=== PATIENT | male | born 1940 | race Caucasian/White ===

== ENCOUNTER 2019-05-27 11:27 | Inpatient (IN) | payer MEDICARE ==
[2019-05-27] MEDS ORDERED: Dextrose 5% in Water 1,000 ML IV PRN (14:53)
[2019-05-27] MEDS ORDERED: Dextrose 50% Abboject 50 ML SYRINGE SLOW IVP PRN (14:53)
[2019-05-27] MEDS: HumaLOG 300 UNITS/3 ML VIAL SC PRN ×2 (17:31→22:35)
[2019-05-27] MEDS: Atorvastatin Calcium 40 MG TAB PO SCH (22:33)
[2019-05-27] MEDS: Rivaroxaban 10 MG TAB PO SCH ×3 (22:33→22:44)
[2019-05-27] MEDS: Aspirin Chewable 81 MG TAB PO SCH (22:34)
[2019-05-27] MEDS: Multivitamin W/ Minerals 1 TAB PO SCH (22:35)
[2019-05-27] MEDS: Gabapentin 300 MG CAP PO SCH (22:35)
[2019-05-27] MEDS: BIOTIN PO SCH (22:47)
[2019-05-27] MEDS: GLUCOSAMINE PO SCH (22:48)
[2019-05-27] MEDS: MAGNESIUM 250 MG PO SCH (22:48)
--- NOTE | 2019-05-28 01:41 | HP ---
PRIMARY CARE PHYSICIAN: From [place]. REASON FOR ADMISSION: Skilled rehab in [place] after sustaining a fall/fracture. HISTORY OF THE PRESENT ILLNESS AND HOSPITAL COURSE: Mr. Drake is a 79-year- old male with a past medical history of coronary artery disease, status post CABG; paroxysmal atrial fibrillation, on long-term use of Xarelto for anticoagulation; history of cardiomyopathy and systolic dysfunction with EF of 40% to 45%; CKD stage 3; aortic valve replacement with porcine valve for aortic stenosis and previous history of CVA; insulin-dependent type 2 diabetes, for which he is on insulin pump; diabetic retinopathy, nephropathy, and neuropathy. The patient lives at an assisted living in [place]. Apparently, he was reported to have had witnessed seizure at the assisted living facility. Per records, he denies history of seizure in the past. Per report that we gathered, the patient fell landing on his right hip after his seizure episode and he lost his consciousness. The patient was subsequently transferred to emergency room for further evaluation. While in the emergency room, he was reported to have a minute of witnessed seizure by a nurse. The patient was given 500 IV Keppra at that time. He had CT of the head done, which shows old lacunar infarcts and volume loss, but no acute findings. CT of the pelvis without contrast showed acute comminuted fracture of the right inferior pubic ramus, acute fracture of medial and posterior right acetabulum, the right obturator externus and internus intramuscular hematoma. CT of the cervical spine showed no fracture. There was a homogeneously hyperdense 4 cm mass versus hematoma in the subcutaneous tissue of posterior neck noted. His EKG was reported controlled rate, atrial fibrillation. Orthopedic surgeon, Dr. Butler, was consulted at that time. The patient was conservatively managed for his fracture and for orthopedic recommendation. With regards to his seizure, it was deemed secondary to hypoglycemia. His Insulin pump was discontinued and patient was started on long acting basal insulin. He is currently on 10 units qd. Patient was then transferred to [facility] for further rehab prior to going back home to assisted living. PAST MEDICAL HISTORY: Legally blind; coronary artery disease, status post CABG; paroxysmal atrial fibrillation, long-term use of Xarelto for anticoagulation. His retail service technician is Dr. Fernandez. History of cardiomyopathy and systolic dysfunction with EF of around 40% to 45%; CKD stage 3; aortic valve replacement with porcine valve for aortic stenosis; previous history of stroke; insulin-dependent type 2 diabetes, for which he is on insulin pump, diabetic retinopathy, nephropathy, and neuropathy; depression; anxiety. PAST SURGICAL HISTORY: Cholecystectomy, coronary artery bypass graft, cardiac valve replacement by aortic bioprosthetic valve in 2007, bilateral cataract removal, previous cardioversion. CURRENT MEDICATIONS: 1. Amlodipine 5 mg p.o. daily. 2. Aspirin 81 mg p.o. daily. 3. Atorvastatin 40 mg p.o. at bedtime. 4. Ferrous sulfate 325 mg p.o. daily. 5. Furosemide 40 mg p.o. daily. 6. Gabapentin 300 mg at 12 noon and 2100. 7. Lantus 10 units subcu daily. 8. Theragran-M one tablet p.o. at bedtime. 9. Pantoprazole 40 mg p.o. daily. 10. Polyethylene glycol 17 g p.o. daily. 11. Xarelto 15 mg p.o. at bedtime. 12. Sertraline 50 mg p.o. daily. 13. Carvedilol 3.125 mg p.o. b.i.d. 14. Glucosamine 500 mg p.o. at bedtime. 15. Magnesium 250 mg p.o. at bedtime. 16. Biotin 2500 mg p.o. at bedtime. SOCIAL HISTORY: Denies alcohol or tobacco use. He is retired. He lives in assisted living in [place]. He is a full code. ALLERGIES: TO SULFA ANTIBIOTIC, PREDNISONE. FAMILY HISTORY: Mother at the age of 74 with [place] and father at the age of 88 with [place]. REVIEW OF SYSTEMS: GENERAL: Denies fever, chills. Reports fatigue and general weakness. No loss of appetite. HEENT: Reports blind in one eye and blurred vision in another eye. No eye discharge. No acute hearing changes. Reports intermittent picking of nose that leads to nose bleeding. RESPIRATORY: No cough, sputum production, or bloody sputum. No pain with breathing. CARDIAC: No chest pain. No dyspnea on exertion. No paroxysmal nocturnal dyspnea. GASTROINTESTINAL: No nausea, vomiting, abdominal pain, rectal bleeding, hematemesis, hematochezia, melena. GENITOURINARY: No dysuria, frequency, urgency, gross hematuria, incontinence. MUSCULOSKELETAL: Reports joint pain/fall/fracture as per HPI. NEUROLOGIC: Denies focal numbness, focal weakness. Reports unsteadiness of gait and seizure per HPI. SKIN: Reports some bruises. No rashes. Nonhealing ulcer. HEMATOLOGY: On long-term use of anticoagulant. Reports easy bruising and occasional nose bleeding. PHYSICAL EXAMINATION: VITAL SIGNS: Blood pressure 133/60, temp 97.3, pulse 68, [id number], O2 saturations 96% on room air. Weight 171 pounds and height 5 feet. GENERAL: The patient is awake, alert, oriented. he is generally weak looking, frail elderly. He is comfortable on exam,no signs of acute respiratory distress. He is able to answer simple questions with appropriateness. No family is available at bedside during the assessment. HEENT: Normocephalic, atraumatic. PERRL. Intact EOM. Anicteric sclerae. Clear naris. Oral mucosa is moist. No lesions. NECK: Supple. Full range of motion. No LAD. CHEST: Normal excursion. Clear to auscultation bilaterally. CARDIAC: Rate controlled. Normal S1 and S2. ABDOMEN: Flat, soft. Normoactive bowel sounds. Nondistended, nontender. No rebound or guarding. Negative CVA tenderness bilaterally. EXTREMITIES: No edema. No cyanosis. NEUROLOGIC: Nonfocal. DTRs 2+. Gait unsteady. He is unable to get up on his own, max assist at this time. MUSCULOSKELETAL: No joint effusion. No erythema. No contusion noted on both hips. SKIN: good skin turgor. A dry brownish black looking wound noted on the left medial sole, about1-1.2 cm in size. No drainage, no exudates, no erythema, no signs of infection. See picture for details. PSYCHIATRIC: Calm, cooperative, interactive. LABORATORY DATA: Recent labs in the hospital, May 23, 2019; WBC 6.5, hemoglobin 9.5, hematocrit 30.3. Sodium 141, potassium 4.4, glucose 161, BUN 61, creatinine 1.9, GFR 37, calcium 8.8. ASSESSMENT: 1. Nondisplaced pelvic fracture secondary to fall, for conservative management only. 2. Severe debility secondary to general weakness. 3. Unsteady gait. 4. Status post fall at home. 5. Seizure deemed to be secondary to hypoglycemia. No further anticonvulsants were recommended 6. Chronic atrial fibrillation, rate controlled on long-term use of Xarelto for anticoagulation. 7. Congestive heart failure with ejection fraction of 40% to 45%. 8. Diabetes type 2, insulin-dependent, on insulin pump, previously on insulin pump. 9. Hypertension. 10. Diabetic retinopathy and neuropathy. 11. Anxiety. 12. Dyslipidemia. 13. Chronic kidney disease stage 3. 14. History of hypoglycemia. 15. Chronic wound of the left foot. PLAN: 1. The patient was admitted to [facility] for skilled rehab. PT/ OT to be consulted. 2. We will continue current medications per list. To continue low dose long acting basal insulin with extreme caution, secondary to history of hypoglycemia that was deemed causing the reported seizure activity from the hospital 3. Accu-Cheks with NovoLog q.a.c. and at bedtime. Hypoglycemic precautions. 4. Fall precautions. 5. Cardiac diet. 6. We will continue monitoring the patient and manage and supportive medical management for barriers that will interfere with rehab. 7. Wound care order will be coordinated either from the hospital versus [facility] staff in am. For the meantime, will keep the wound dry and clean with routine wound dressing per protocol. 8. DVT prophylaxis is not ordered as the patient is already on long-term use of Xarelto and aspirin. 8. Further recommendations depending on the hospital course. 9. Code status: FULL CODE. This was confirmed with son, Arias Camp, on the phone. ESTIMATED LENGTH OF STAY: 2-3 weeks. Job ID: [id number] MTDD
[2019-05-28 06:08] LABS: Hemoglobin 9.5 g/dL (14.0-18.0); Mean Corpuscular HGB CONC 31.9 g/dL (32.0-36.0); Mean Corpuscular Hemoglobin 29.2 pg (27.0-31.0); Mean Corpuscular Volume 91.6 fL (78.0-98.0); Mean Platelet Volume 6.9 fL (7.4-10.4); Platelet Count 150 thou/uL (130-400); RBC Distribution Width 15.2 % (11.5-14.5); Red Blood Cell (RBC) Count 3.25 mill/uL (4.70-6.10)
[2019-05-28 06:09] LABS: #Basophils 0.1 thou/uL (0.0-0.2); #Eosinphils 0.2 thou/uL (0.0-0.7); #Lymphocytes 1.3 thou/uL (1.20-3.40); #Monocytes 0.7 thou/uL (0.11-0.59); #Neutrophils 3.8 thou/uL (1.40-6.50); %Eosinophils 3.2 % (0.0-10.0); %Lymphocytes 21.1 % (21.0-51.0); %Monocytes 11.3 % (0.0-10.0); %Neutrophils 63.4 % (42.0-75.0)
[2019-05-28 07:06] LABS: Anion Gap 14 mmol/L (10-20); BUN (Urea Nitrogen) 47 mg/dL (8.4-25.7); Calc. Creatinine Clearance 39 mL/min (70-130); Calcium 9.2 mg/dL (7.8-10.44); Carbon Dioxide 30 mmol/L (23-31); Chloride 102 mmol/L (98-107); Estimated GFR-MDRD 39; Glucose 184 mg/dL (83-110); Potassium 4.8 mmol/L (3.5-5.1); Sodium 141 mmol/L (136-145)
[2019-05-28] MEDS: Amlodipine 5 MG TAB PO SCH (08:23)
[2019-05-28] MEDS: Ferrous Sulfate 325 MG TAB PO SCH (08:23)
[2019-05-28] MEDS: HYDROcodone/Acetaminophen 5/325 mg Tablet PO PRN (08:24)
[2019-05-28] MEDS: Furosemide 40 MG TAB PO SCH (08:24)
[2019-05-28] MEDS: HumaLOG 300 UNITS/3 ML VIAL SC PRN ×4 (08:26→22:09)
[2019-05-28] MEDS: Lantus 1000 UNITS/10 ML VIAL SC SCH (08:34)
[2019-05-28] MEDS: Gabapentin 300 MG CAP PO SCH ×2 (11:51→21:21)
[2019-05-28] MEDS: Multivitamin W/ Minerals 1 TAB PO SCH (21:21)
[2019-05-28] MEDS: Aspirin Chewable 81 MG TAB PO SCH (21:21)
[2019-05-28] MEDS: Atorvastatin Calcium 40 MG TAB PO SCH (21:21)
[2019-05-28] MEDS: BIOTIN PO SCH (21:23)
[2019-05-28] MEDS: Rivaroxaban 10 MG TAB PO SCH (21:24)
[2019-05-28] MEDS: MAGNESIUM 250 MG PO SCH (21:24)
[2019-05-28] MEDS: GLUCOSAMINE PO SCH (21:24)
[2019-05-29] MEDS: HYDROcodone/Acetaminophen 5/325 mg Tablet PO PRN (08:48)
[2019-05-29] MEDS: Polyethylene Glycol 3350 17 GM Packet PO PRN (08:49)
[2019-05-29] MEDS: Ferrous Sulfate 325 MG TAB PO SCH (08:50)
[2019-05-29] MEDS: Furosemide 40 MG TAB PO SCH (08:50)
[2019-05-29] MEDS: Amlodipine 5 MG TAB PO SCH (08:51)
[2019-05-29] MEDS: Lantus 1000 UNITS/10 ML VIAL SC SCH (08:53)
[2019-05-29] MEDS: HumaLOG 300 UNITS/3 ML VIAL SC PRN ×4 (08:58→21:06)
[2019-05-29] MEDS: Gabapentin 300 MG CAP PO SCH ×2 (12:15→20:39)
[2019-05-29] MEDS: Atorvastatin Calcium 40 MG TAB PO SCH (20:38)
[2019-05-29] MEDS: Multivitamin W/ Minerals 1 TAB PO SCH (20:38)
[2019-05-29] MEDS: Rivaroxaban 10 MG TAB PO SCH (20:38)
[2019-05-29] MEDS: Aspirin Chewable 81 MG TAB PO SCH (20:39)
[2019-05-29] MEDS: MAGNESIUM 250 MG PO SCH (20:40)
[2019-05-29] MEDS: BIOTIN PO SCH (20:40)
[2019-05-29] MEDS: GLUCOSAMINE PO SCH (20:40)
[2019-05-30] MEDS: Ferrous Sulfate 325 MG TAB PO SCH (08:26)
[2019-05-30] MEDS: Furosemide 40 MG TAB PO SCH (08:26)
[2019-05-30] MEDS: Amlodipine 5 MG TAB PO SCH (08:26)
[2019-05-30] MEDS: Lantus 1000 UNITS/10 ML VIAL SC SCH (08:28)
[2019-05-30] MEDS: HumaLOG 300 UNITS/3 ML VIAL SC PRN ×4 (08:30→20:57)
[2019-05-30] MEDS: Gabapentin 300 MG CAP PO SCH ×2 (11:50→20:48)
[2019-05-30] MEDS: Atorvastatin Calcium 40 MG TAB PO SCH (20:48)
[2019-05-30] MEDS: Multivitamin W/ Minerals 1 TAB PO SCH (20:48)
[2019-05-30] MEDS: BIOTIN PO SCH (20:48)
[2019-05-30] MEDS: Aspirin Chewable 81 MG TAB PO SCH (20:48)
[2019-05-30] MEDS: Rivaroxaban 10 MG TAB PO SCH (20:49)
[2019-05-30] MEDS: MAGNESIUM 250 MG PO SCH (20:49)
[2019-05-30] MEDS: GLUCOSAMINE PO SCH (20:49)
[2019-05-31] MEDS: Furosemide 40 MG TAB PO SCH (08:15)
[2019-05-31] MEDS: Amlodipine 5 MG TAB PO SCH (08:15)
[2019-05-31] MEDS: Ferrous Sulfate 325 MG TAB PO SCH (08:15)
[2019-05-31] MEDS: HumaLOG 300 UNITS/3 ML VIAL SC PRN ×4 (08:16→20:36)
[2019-05-31] MEDS: Lantus 1000 UNITS/10 ML VIAL SC SCH (08:16)
[2019-05-31] MEDS: Gabapentin 300 MG CAP PO SCH ×2 (12:00→20:26)
[2019-05-31] MEDS: Multivitamin W/ Minerals 1 TAB PO SCH (20:25)
[2019-05-31] MEDS: Atorvastatin Calcium 40 MG TAB PO SCH (20:25)
[2019-05-31] MEDS: Aspirin Chewable 81 MG TAB PO SCH (20:25)
[2019-05-31] MEDS: Rivaroxaban 10 MG TAB PO SCH (20:26)
[2019-05-31] MEDS: Polyethylene Glycol 3350 17 GM Packet PO PRN (20:30)
[2019-05-31] MEDS: BIOTIN PO SCH (21:13)
[2019-05-31] MEDS: MAGNESIUM 250 MG PO SCH (21:14)
[2019-05-31] MEDS: GLUCOSAMINE PO SCH (21:14)
[2019-06-01 05:15] LABS: Hemoglobin 9.8 g/dL (14.0-18.0); Platelet Count 204 thou/uL (130-400)
[2019-06-01] MEDS: Furosemide 40 MG TAB PO SCH (09:04)
[2019-06-01] MEDS: Amlodipine 5 MG TAB PO SCH (09:04)
[2019-06-01] MEDS: Ferrous Sulfate 325 MG TAB PO SCH (09:04)
[2019-06-01] MEDS: Lantus 1000 UNITS/10 ML VIAL SC SCH (09:06)
[2019-06-01] MEDS: HumaLOG 300 UNITS/3 ML VIAL SC PRN ×4 (09:06→22:36)
[2019-06-01] MEDS: Gabapentin 300 MG CAP PO SCH ×2 (12:08→21:12)
[2019-06-01] MEDS: HYDROcodone/Acetaminophen 5/325 mg Tablet PO PRN (13:34)
[2019-06-01] MEDS: Atorvastatin Calcium 40 MG TAB PO SCH (21:12)
[2019-06-01] MEDS: Magnesium Oxide 400 MG TAB PO SCH (21:13)
[2019-06-01] MEDS: Rivaroxaban 10 MG TAB PO SCH (21:14)
[2019-06-01] MEDS: Aspirin Chewable 81 MG TAB PO SCH (21:14)
[2019-06-01] MEDS: Multivitamin W/ Minerals 1 TAB PO SCH (21:15)
[2019-06-01] MEDS: GLUCOSAMINE CHONDROITIN COMPLEX PO SCH (21:28)
[2019-06-01] MEDS: [UNRECOGNIZED DRUG - OTHER] PO SCH (21:30)
[2019-06-01] MEDS: HAIR PO SCH (21:30)
[2019-06-02] MEDS: Ferrous Sulfate 325 MG TAB PO SCH (08:20)
[2019-06-02] MEDS: Amlodipine 5 MG TAB PO SCH (08:20)
[2019-06-02] MEDS: Lantus 1000 UNITS/10 ML VIAL SC SCH (08:21)
[2019-06-02] MEDS: HumaLOG 300 UNITS/3 ML VIAL SC PRN ×4 (08:21→20:52)
[2019-06-02] MEDS: Furosemide 40 MG TAB PO SCH (08:21)
[2019-06-02] MEDS: Gabapentin 300 MG CAP PO SCH ×2 (12:04→20:49)
[2019-06-02] MEDS: HYDROcodone/Acetaminophen 5/325 mg Tablet PO PRN (13:57)
[2019-06-02] MEDS: Aspirin Chewable 81 MG TAB PO SCH (20:49)
[2019-06-02] MEDS: Rivaroxaban 10 MG TAB PO SCH (20:49)
[2019-06-02] MEDS: Multivitamin W/ Minerals 1 TAB PO SCH (20:49)
[2019-06-02] MEDS: Atorvastatin Calcium 40 MG TAB PO SCH (20:49)
[2019-06-02] MEDS: Magnesium Oxide 400 MG TAB PO SCH (20:49)
[2019-06-02] MEDS: GLUCOSAMINE CHONDROITIN COMPLEX PO SCH (20:50)
[2019-06-02] MEDS: [UNRECOGNIZED DRUG - OTHER] PO SCH (20:50)
[2019-06-02] MEDS: HAIR PO SCH (20:50)
[2019-06-03] MEDS: Amlodipine 5 MG TAB PO SCH (08:02)
[2019-06-03] MEDS: Ferrous Sulfate 325 MG TAB PO SCH (08:02)
[2019-06-03] MEDS: Furosemide 40 MG TAB PO SCH (08:02)
[2019-06-03] MEDS: Lantus 1000 UNITS/10 ML VIAL SC SCH (08:04)
[2019-06-03] MEDS: HumaLOG 300 UNITS/3 ML VIAL SC PRN ×4 (08:05→21:18)
[2019-06-03] MEDS: Gabapentin 300 MG CAP PO SCH ×2 (11:59→20:37)
[2019-06-03] MEDS: Rivaroxaban 10 MG TAB PO SCH (20:36)
[2019-06-03] MEDS: Atorvastatin Calcium 40 MG TAB PO SCH (20:36)
[2019-06-03] MEDS: Aspirin Chewable 81 MG TAB PO SCH (20:37)
[2019-06-03] MEDS: Multivitamin W/ Minerals 1 TAB PO SCH (20:37)
[2019-06-03] MEDS: Magnesium Oxide 400 MG TAB PO SCH (20:37)
[2019-06-03] MEDS: [UNRECOGNIZED DRUG - OTHER] PO SCH (20:38)
[2019-06-03] MEDS: GLUCOSAMINE CHONDROITIN COMPLEX PO SCH (20:38)
[2019-06-03] MEDS: HAIR PO SCH (20:38)
[2019-06-04 05:08] LABS: Hemoglobin 8.9 g/dL (14.0-18.0); Platelet Count 204 thou/uL (130-400)
[2019-06-04] MEDS: Lantus 1000 UNITS/10 ML VIAL SC SCH (07:57)
[2019-06-04] MEDS: HumaLOG 300 UNITS/3 ML VIAL SC PRN ×3 (07:58→16:56)
[2019-06-04] MEDS: Amlodipine 5 MG TAB PO SCH (08:00)
[2019-06-04] MEDS: Ferrous Sulfate 325 MG TAB PO SCH (08:00)
[2019-06-04] MEDS: Furosemide 40 MG TAB PO SCH (08:01)
[2019-06-04] MEDS ORDERED: Insulin Glargine 20 UNITS in Pre-Filled Syringe 1 EACH SC SCH (09:00)
[2019-06-04] MEDS: Gabapentin 300 MG CAP PO SCH ×2 (11:40→20:26)
[2019-06-04] MEDS: HYDROcodone/Acetaminophen 5/325 mg Tablet PO PRN (14:15)
[2019-06-04] MEDS ORDERED: Acetaminophen 325 MG TAB PO PRN (17:51)
[2019-06-04] MEDS: Rivaroxaban 10 MG TAB PO SCH (20:25)
[2019-06-04] MEDS: Atorvastatin Calcium 40 MG TAB PO SCH (20:26)
[2019-06-04] MEDS: Magnesium Oxide 400 MG TAB PO SCH (20:26)
[2019-06-04] MEDS: Multivitamin W/ Minerals 1 TAB PO SCH (20:26)
[2019-06-04] MEDS: Aspirin Chewable 81 MG TAB PO SCH (20:26)
[2019-06-04] MEDS: [UNRECOGNIZED DRUG - OTHER] PO SCH (20:27)
[2019-06-04] MEDS: HAIR PO SCH (20:27)
[2019-06-04] MEDS: GLUCOSAMINE CHONDROITIN COMPLEX PO SCH (20:27)
[2019-06-05] MEDS: Ferrous Sulfate 325 MG TAB PO SCH (08:24)
[2019-06-05] MEDS: Amlodipine 5 MG TAB PO SCH (08:24)
[2019-06-05] MEDS: Furosemide 40 MG TAB PO SCH (08:25)
[2019-06-05] MEDS: Lantus 1000 UNITS/10 ML VIAL SC SCH (08:25)
[2019-06-05] MEDS: Gabapentin 300 MG CAP PO SCH ×2 (12:10→20:28)
[2019-06-05] MEDS: HumaLOG 300 UNITS/3 ML VIAL SC PRN ×3 (12:11→20:28)
[2019-06-05] MEDS: Magnesium Oxide 400 MG TAB PO SCH (20:29)
[2019-06-05] MEDS: Multivitamin W/ Minerals 1 TAB PO SCH (20:29)
[2019-06-05] MEDS: Aspirin Chewable 81 MG TAB PO SCH (20:29)
[2019-06-05] MEDS: Rivaroxaban 10 MG TAB PO SCH (20:29)
[2019-06-05] MEDS: Atorvastatin Calcium 40 MG TAB PO SCH (20:29)
[2019-06-05] MEDS: HAIR PO SCH (20:36)
[2019-06-05] MEDS: GLUCOSAMINE CHONDROITIN COMPLEX PO SCH (20:36)
[2019-06-05] MEDS: [UNRECOGNIZED DRUG - OTHER] PO SCH (20:36)
[2019-06-06] MEDS: Amlodipine 5 MG TAB PO SCH (08:24)
[2019-06-06] MEDS: Ferrous Sulfate 325 MG TAB PO SCH (08:24)
[2019-06-06] MEDS: Furosemide 40 MG TAB PO SCH (08:25)
[2019-06-06] MEDS: Lantus 1000 UNITS/10 ML VIAL SC SCH (08:25)
[2019-06-06] MEDS: HumaLOG 300 UNITS/3 ML VIAL SC PRN ×3 (08:27→20:48)
[2019-06-06] MEDS: Gabapentin 300 MG CAP PO SCH ×2 (12:24→20:50)
[2019-06-06] MEDS: Rivaroxaban 10 MG TAB PO SCH (20:50)
[2019-06-06] MEDS: Multivitamin W/ Minerals 1 TAB PO SCH (20:50)
[2019-06-06] MEDS: Atorvastatin Calcium 40 MG TAB PO SCH (20:50)
[2019-06-06] MEDS: Magnesium Oxide 400 MG TAB PO SCH (20:50)
[2019-06-06] MEDS: [UNRECOGNIZED DRUG - OTHER] PO SCH (20:52)
[2019-06-06] MEDS: HAIR PO SCH (20:52)
[2019-06-06] MEDS: GLUCOSAMINE CHONDROITIN COMPLEX PO SCH (20:52)
[2019-06-06] MEDS: Aspirin Chewable 81 MG TAB PO SCH (20:59)
[2019-06-07] MEDS: Lantus 1000 UNITS/10 ML VIAL SC SCH (09:13)
[2019-06-07] MEDS: Amlodipine 5 MG TAB PO SCH (09:14)
[2019-06-07] MEDS: HumaLOG 300 UNITS/3 ML VIAL SC PRN ×3 (09:14→21:46)
[2019-06-07] MEDS: Furosemide 40 MG TAB PO SCH (09:15)
[2019-06-07] MEDS: Ferrous Sulfate 325 MG TAB PO SCH (09:15)
[2019-06-07] MEDS: Gabapentin 300 MG CAP PO SCH ×2 (11:57→21:25)
[2019-06-07] MEDS: Rivaroxaban 10 MG TAB PO SCH (21:25)
[2019-06-07] MEDS: Atorvastatin Calcium 40 MG TAB PO SCH (21:25)
[2019-06-07] MEDS: Multivitamin W/ Minerals 1 TAB PO SCH (21:25)
[2019-06-07] MEDS: Aspirin Chewable 81 MG TAB PO SCH (21:25)
[2019-06-07] MEDS ORDERED: Rivaroxaban 10 MG TAB ONE (21:28)
[2019-06-07] MEDS: HAIR PO SCH (21:31)
[2019-06-07] MEDS: Magnesium Oxide 400 MG TAB PO SCH (21:31)
[2019-06-07] MEDS: [UNRECOGNIZED DRUG - OTHER] PO SCH (21:31)
[2019-06-07] MEDS: GLUCOSAMINE CHONDROITIN COMPLEX PO SCH (21:32)
[2019-06-08] MEDS: Amlodipine 5 MG TAB PO SCH (08:25)
[2019-06-08] MEDS: Ferrous Sulfate 325 MG TAB PO SCH (08:25)
[2019-06-08] MEDS: Lantus 1000 UNITS/10 ML VIAL SC SCH (08:26)
[2019-06-08] MEDS: Furosemide 40 MG TAB PO SCH (08:26)
[2019-06-08] MEDS: Gabapentin 300 MG CAP PO SCH ×2 (12:08→20:48)
[2019-06-08] MEDS: HumaLOG 300 UNITS/3 ML VIAL SC PRN ×2 (12:09→21:32)
[2019-06-08] MEDS: Rivaroxaban 10 MG TAB PO SCH (20:47)
[2019-06-08] MEDS: Multivitamin W/ Minerals 1 TAB PO SCH (20:48)
[2019-06-08] MEDS: Aspirin Chewable 81 MG TAB PO SCH (20:48)
[2019-06-08] MEDS: Atorvastatin Calcium 40 MG TAB PO SCH (20:48)
[2019-06-08] MEDS: Magnesium Oxide 400 MG TAB PO SCH (20:50)
[2019-06-08] MEDS: GLUCOSAMINE CHONDROITIN COMPLEX PO SCH (20:51)
[2019-06-08] MEDS: [UNRECOGNIZED DRUG - OTHER] PO SCH (20:51)
[2019-06-08] MEDS: HAIR PO SCH (20:51)
[2019-06-09] MEDS: Amlodipine 5 MG TAB PO SCH (07:52)
[2019-06-09] MEDS: Polyethylene Glycol 3350 17 GM Packet PO PRN (07:52)
[2019-06-09] MEDS: HYDROcodone/Acetaminophen 5/325 mg Tablet PO PRN (07:53)
[2019-06-09] MEDS: Ferrous Sulfate 325 MG TAB PO SCH (07:54)
[2019-06-09] MEDS: Furosemide 40 MG TAB PO SCH (07:54)
[2019-06-09] MEDS: Lantus 1000 UNITS/10 ML VIAL SC SCH (07:59)
[2019-06-09] MEDS: HumaLOG 300 UNITS/3 ML VIAL SC PRN ×2 (12:00→16:57)
[2019-06-09] MEDS: Gabapentin 300 MG CAP PO SCH ×2 (13:15→20:30)
[2019-06-09] MEDS: Rivaroxaban 10 MG TAB PO SCH (20:30)
[2019-06-09] MEDS: Aspirin Chewable 81 MG TAB PO SCH (20:30)
[2019-06-09] MEDS: Multivitamin W/ Minerals 1 TAB PO SCH (20:30)
[2019-06-09] MEDS: Atorvastatin Calcium 40 MG TAB PO SCH (20:30)
[2019-06-09] MEDS: HAIR PO SCH (20:31)
[2019-06-09] MEDS: [UNRECOGNIZED DRUG - OTHER] PO SCH (20:31)
[2019-06-09] MEDS: Magnesium Oxide 400 MG TAB PO SCH (20:31)
[2019-06-09] MEDS: GLUCOSAMINE CHONDROITIN COMPLEX PO SCH (20:31)
[2019-06-10] MEDS: Ferrous Sulfate 325 MG TAB PO SCH (08:49)
[2019-06-10] MEDS: Amlodipine 5 MG TAB PO SCH (08:49)
[2019-06-10] MEDS: Lantus 1000 UNITS/10 ML VIAL SC SCH (08:50)
[2019-06-10] MEDS: Furosemide 40 MG TAB PO SCH (08:50)
[2019-06-10] MEDS: HumaLOG 300 UNITS/3 ML VIAL SC PRN ×2 (11:52→20:52)
[2019-06-10] MEDS: HYDROcodone/Acetaminophen 5/325 mg Tablet PO PRN (11:52)
[2019-06-10] MEDS: Gabapentin 300 MG CAP PO SCH ×2 (11:52→20:05)
[2019-06-10] MEDS: Magnesium Oxide 400 MG TAB PO SCH (20:05)
[2019-06-10] MEDS: Rivaroxaban 10 MG TAB PO SCH (20:05)
[2019-06-10] MEDS: Atorvastatin Calcium 40 MG TAB PO SCH (20:05)
[2019-06-10] MEDS: Multivitamin W/ Minerals 1 TAB PO SCH (20:06)
[2019-06-10] MEDS: Aspirin Chewable 81 MG TAB PO SCH (20:06)
[2019-06-10] MEDS: GLUCOSAMINE CHONDROITIN COMPLEX PO SCH (20:09)
[2019-06-10] MEDS: HAIR PO SCH (20:09)
[2019-06-10] MEDS: [UNRECOGNIZED DRUG - OTHER] PO SCH (20:09)
[2019-06-11] MEDS: Amlodipine 5 MG TAB PO SCH (08:07)
[2019-06-11] MEDS: HumaLOG 300 UNITS/3 ML VIAL SC PRN ×3 (08:07→16:46)
[2019-06-11] MEDS: Furosemide 40 MG TAB PO SCH (08:08)
[2019-06-11] MEDS: Lantus 1000 UNITS/10 ML VIAL SC SCH (08:08)
[2019-06-11] MEDS: Ferrous Sulfate 325 MG TAB PO SCH (08:08)
[2019-06-11] MEDS: Gabapentin 300 MG CAP PO SCH ×2 (11:54→20:15)
[2019-06-11] MEDS: [UNRECOGNIZED DRUG - OTHER] PO SCH (20:13)
[2019-06-11] MEDS: HAIR PO SCH (20:13)
[2019-06-11] MEDS: GLUCOSAMINE CHONDROITIN COMPLEX PO SCH (20:14)
[2019-06-11] MEDS: Atorvastatin Calcium 40 MG TAB PO SCH (20:14)
[2019-06-11] MEDS: Multivitamin W/ Minerals 1 TAB PO SCH (20:14)
[2019-06-11] MEDS: Magnesium Oxide 400 MG TAB PO SCH (20:14)
[2019-06-11] MEDS: Rivaroxaban 10 MG TAB PO SCH (20:14)
[2019-06-11] MEDS: Aspirin Chewable 81 MG TAB PO SCH (20:15)
[2019-06-12] MEDS: Lantus 1000 UNITS/10 ML VIAL SC SCH (09:25)
[2019-06-12] MEDS: Amlodipine 5 MG TAB PO SCH (09:25)
[2019-06-12] MEDS: Furosemide 40 MG TAB PO SCH (09:25)
[2019-06-12] MEDS: Ferrous Sulfate 325 MG TAB PO SCH (09:25)
[2019-06-12] MEDS: HumaLOG 300 UNITS/3 ML VIAL SC PRN ×2 (11:58→21:38)
[2019-06-12] MEDS: Gabapentin 300 MG CAP PO SCH ×2 (11:58→21:39)
[2019-06-12] MEDS: Multivitamin W/ Minerals 1 TAB PO SCH (21:39)
[2019-06-12] MEDS: Aspirin Chewable 81 MG TAB PO SCH (21:39)
[2019-06-12] MEDS: Atorvastatin Calcium 40 MG TAB PO SCH (21:39)
[2019-06-12] MEDS: Magnesium Oxide 400 MG TAB PO SCH (21:39)
[2019-06-12] MEDS: Rivaroxaban 10 MG TAB PO SCH (21:39)
[2019-06-12] MEDS: [UNRECOGNIZED DRUG - OTHER] PO SCH (21:40)
[2019-06-12] MEDS: HAIR PO SCH (21:40)
[2019-06-12] MEDS: GLUCOSAMINE CHONDROITIN COMPLEX PO SCH (21:40)
[2019-06-13 05:01] LABS: Platelet Count 176 thou/uL (130-400)
[2019-06-13 05:21] LABS: Anion Gap 14 mmol/L (10-20); BUN (Urea Nitrogen) 53 mg/dL (8.4-25.7); Calc. Creatinine Clearance 38 mL/min (70-130); Calcium 8.9 mg/dL (7.8-10.44); Carbon Dioxide 29 mmol/L (23-31); Chloride 106 mmol/L (98-107); Estimated GFR-MDRD 36; Glucose 128 mg/dL (83-110); Potassium 4.3 mmol/L (3.5-5.1); Sodium 145 mmol/L (136-145)
[2019-06-13] MEDS: Furosemide 40 MG TAB PO SCH (08:43)
[2019-06-13] MEDS: Amlodipine 5 MG TAB PO SCH (08:44)
[2019-06-13] MEDS: Lantus 1000 UNITS/10 ML VIAL SC SCH (08:44)
[2019-06-13] MEDS: Ferrous Sulfate 325 MG TAB PO SCH (08:44)
[2019-06-13] MEDS: HumaLOG 300 UNITS/3 ML VIAL SC PRN ×2 (12:00→17:05)
[2019-06-13] MEDS: Gabapentin 300 MG CAP PO SCH ×2 (12:19→21:30)
[2019-06-13 15:39] LABS: Hemoglobin A1c 8.3 % (4.0-6.0)
[2019-06-13] MEDS: Rivaroxaban 10 MG TAB PO SCH (21:29)
[2019-06-13] MEDS: [UNRECOGNIZED DRUG - OTHER] PO SCH (21:30)
[2019-06-13] MEDS: Aspirin Chewable 81 MG TAB PO SCH (21:30)
[2019-06-13] MEDS: Multivitamin W/ Minerals 1 TAB PO SCH (21:30)
[2019-06-13] MEDS: Atorvastatin Calcium 40 MG TAB PO SCH (21:30)
[2019-06-13] MEDS: HAIR PO SCH (21:30)
[2019-06-13] MEDS: GLUCOSAMINE CHONDROITIN COMPLEX PO SCH (21:30)
[2019-06-13] MEDS: Magnesium Oxide 400 MG TAB PO SCH (21:31)
[2019-06-14] MEDS: Ferrous Sulfate 325 MG TAB PO SCH (08:22)
[2019-06-14] MEDS: Amlodipine 5 MG TAB PO SCH (08:22)
[2019-06-14] MEDS: Lantus 1000 UNITS/10 ML VIAL SC SCH (08:22)
[2019-06-14] MEDS: Furosemide 40 MG TAB PO SCH (08:23)
[2019-06-14] MEDS: Gabapentin 300 MG CAP PO SCH ×2 (11:52→20:58)
[2019-06-14] MEDS: HumaLOG 300 UNITS/3 ML VIAL SC PRN ×3 (11:52→21:01)
[2019-06-14] MEDS: Rivaroxaban 10 MG TAB PO SCH (20:54)
[2019-06-14] MEDS: Multivitamin W/ Minerals 1 TAB PO SCH (20:56)
[2019-06-14] MEDS: Aspirin Chewable 81 MG TAB PO SCH (20:57)
[2019-06-14] MEDS: Atorvastatin Calcium 40 MG TAB PO SCH (20:57)
[2019-06-14] MEDS: Magnesium Oxide 400 MG TAB PO SCH (20:58)
[2019-06-14] MEDS: GLUCOSAMINE CHONDROITIN COMPLEX PO SCH (20:58)
[2019-06-14] MEDS: HAIR PO SCH (20:59)
[2019-06-14] MEDS: [UNRECOGNIZED DRUG - OTHER] PO SCH (20:59)
[2019-06-15] MEDS: Furosemide 40 MG TAB PO SCH (09:04)
[2019-06-15] MEDS: Lantus 1000 UNITS/10 ML VIAL SC SCH (09:04)
[2019-06-15] MEDS: Ferrous Sulfate 325 MG TAB PO SCH (09:04)
[2019-06-15] MEDS: Amlodipine 5 MG TAB PO SCH (09:05)
[2019-06-15] MEDS: Gabapentin 300 MG CAP PO SCH ×2 (12:32→21:17)
[2019-06-15] MEDS: HumaLOG 300 UNITS/3 ML VIAL SC PRN (12:33)
[2019-06-15] MEDS ORDERED: Sodium Chloride Irrig Solution 250 ML BOT ONE (12:52)
[2019-06-15] MEDS: Aspirin Chewable 81 MG TAB PO SCH (21:16)
[2019-06-15] MEDS: Rivaroxaban 10 MG TAB PO SCH (21:16)
[2019-06-15] MEDS: Multivitamin W/ Minerals 1 TAB PO SCH (21:16)
[2019-06-15] MEDS: Magnesium Oxide 400 MG TAB PO SCH (21:17)
[2019-06-15] MEDS: GLUCOSAMINE CHONDROITIN COMPLEX PO SCH (21:17)
[2019-06-15] MEDS: [UNRECOGNIZED DRUG - OTHER] PO SCH (21:18)
[2019-06-15] MEDS: HAIR PO SCH (21:18)
[2019-06-15] MEDS: Atorvastatin Calcium 40 MG TAB PO SCH (21:18)
[2019-06-16] MEDS: Amlodipine 5 MG TAB PO SCH (08:45)
[2019-06-16] MEDS: Furosemide 40 MG TAB PO SCH (08:46)
[2019-06-16] MEDS: Lantus 1000 UNITS/10 ML VIAL SC SCH (08:46)
[2019-06-16] MEDS: Ferrous Sulfate 325 MG TAB PO SCH (08:46)
[2019-06-16] MEDS: Gabapentin 300 MG CAP PO SCH ×2 (12:03→21:36)
[2019-06-16] MEDS: HumaLOG 300 UNITS/3 ML VIAL SC PRN ×2 (12:04→21:34)
[2019-06-16] MEDS: Atorvastatin Calcium 40 MG TAB PO SCH (21:35)
[2019-06-16] MEDS: Magnesium Oxide 400 MG TAB PO SCH (21:35)
[2019-06-16] MEDS: Multivitamin W/ Minerals 1 TAB PO SCH (21:36)
[2019-06-16] MEDS: Aspirin Chewable 81 MG TAB PO SCH (21:36)
[2019-06-16] MEDS: GLUCOSAMINE CHONDROITIN COMPLEX PO SCH (21:37)
[2019-06-16] MEDS: Rivaroxaban 10 MG TAB PO SCH (21:37)
[2019-06-16] MEDS: HAIR PO SCH (21:38)
[2019-06-16] MEDS: [UNRECOGNIZED DRUG - OTHER] PO SCH (21:38)
[2019-06-17] MEDS: Lantus 1000 UNITS/10 ML VIAL SC SCH (08:16)
[2019-06-17] MEDS: Furosemide 40 MG TAB PO SCH (08:16)
[2019-06-17] MEDS: Amlodipine 5 MG TAB PO SCH (08:17)
[2019-06-17] MEDS: Ferrous Sulfate 325 MG TAB PO SCH (08:17)
[2019-06-17] MEDS: Gabapentin 300 MG CAP PO SCH ×2 (12:05→21:40)
[2019-06-17] MEDS: HumaLOG 300 UNITS/3 ML VIAL SC PRN ×2 (12:07→16:49)
[2019-06-17] MEDS: Multivitamin W/ Minerals 1 TAB PO SCH ×2 (21:40→22:09)
[2019-06-17] MEDS: Atorvastatin Calcium 40 MG TAB PO SCH (21:40)
[2019-06-17] MEDS: Rivaroxaban 10 MG TAB PO SCH (21:40)
[2019-06-17] MEDS: Magnesium Oxide 400 MG TAB PO SCH (21:40)
[2019-06-17] MEDS: Aspirin Chewable 81 MG TAB PO SCH (21:41)
[2019-06-17] MEDS: GLUCOSAMINE CHONDROITIN COMPLEX PO SCH (21:43)
[2019-06-17] MEDS: [UNRECOGNIZED DRUG - OTHER] PO SCH (21:44)
[2019-06-17] MEDS: HAIR PO SCH (21:44)
[2019-06-18] MEDS: Lantus 1000 UNITS/10 ML VIAL SC SCH (08:19)
[2019-06-18] MEDS: Amlodipine 5 MG TAB PO SCH (08:20)
[2019-06-18] MEDS: Furosemide 40 MG TAB PO SCH (08:20)
[2019-06-18] MEDS: Ferrous Sulfate 325 MG TAB PO SCH (08:20)
[2019-06-18] MEDS: Gabapentin 300 MG CAP PO SCH ×2 (11:54→20:49)
[2019-06-18] MEDS: HumaLOG 300 UNITS/3 ML VIAL SC PRN ×3 (11:54→20:54)
[2019-06-18] MEDS: GLUCOSAMINE CHONDROITIN COMPLEX PO SCH (20:48)
[2019-06-18] MEDS: Atorvastatin Calcium 40 MG TAB PO SCH (20:49)
[2019-06-18] MEDS: [UNRECOGNIZED DRUG - OTHER] PO SCH (20:49)
[2019-06-18] MEDS: Multivitamin W/ Minerals 1 TAB PO SCH (20:49)
[2019-06-18] MEDS: Aspirin Chewable 81 MG TAB PO SCH (20:49)
[2019-06-18] MEDS: Magnesium Oxide 400 MG TAB PO SCH (20:49)
[2019-06-18] MEDS: Rivaroxaban 10 MG TAB PO SCH (20:49)
[2019-06-18] MEDS: HAIR PO SCH (20:49)
[2019-06-19] MEDS: Ferrous Sulfate 325 MG TAB PO SCH (09:10)
[2019-06-19] MEDS: Furosemide 40 MG TAB PO SCH (09:10)
[2019-06-19] MEDS: Lantus 1000 UNITS/10 ML VIAL SC SCH (09:10)
[2019-06-19] MEDS: Amlodipine 5 MG TAB PO SCH (09:11)
[2019-06-19] MEDS: Gabapentin 300 MG CAP PO SCH ×2 (12:01→20:05)
[2019-06-19] MEDS: HumaLOG 300 UNITS/3 ML VIAL SC PRN ×3 (12:01→20:38)
[2019-06-19] MEDS: Multivitamin W/ Minerals 1 TAB PO SCH (20:05)
[2019-06-19] MEDS: Atorvastatin Calcium 40 MG TAB PO SCH (20:05)
[2019-06-19] MEDS: Aspirin Chewable 81 MG TAB PO SCH (20:05)
[2019-06-19] MEDS: Magnesium Oxide 400 MG TAB PO SCH (20:05)
[2019-06-19] MEDS: GLUCOSAMINE CHONDROITIN COMPLEX PO SCH (20:05)
[2019-06-19] MEDS: [UNRECOGNIZED DRUG - OTHER] PO SCH (20:06)
[2019-06-19] MEDS: Rivaroxaban 10 MG TAB PO SCH (20:06)
[2019-06-19] MEDS: HAIR PO SCH (20:06)
[2019-06-20] MEDS: Ferrous Sulfate 325 MG TAB PO SCH (08:38)
[2019-06-20] MEDS: Amlodipine 5 MG TAB PO SCH (08:38)
[2019-06-20] MEDS: Furosemide 40 MG TAB PO SCH (08:38)
[2019-06-20] MEDS: Lantus 1000 UNITS/10 ML VIAL SC SCH (08:40)
[2019-06-20] MEDS: HumaLOG 300 UNITS/3 ML VIAL SC PRN ×3 (08:42→17:24)
[2019-06-20] MEDS: Gabapentin 300 MG CAP PO SCH ×2 (12:04→21:05)
[2019-06-20] MEDS: HAIR PO SCH (21:05)
[2019-06-20] MEDS: Multivitamin W/ Minerals 1 TAB PO SCH (21:05)
[2019-06-20] MEDS: Atorvastatin Calcium 40 MG TAB PO SCH (21:05)
[2019-06-20] MEDS: Magnesium Oxide 400 MG TAB PO SCH (21:05)
[2019-06-20] MEDS: GLUCOSAMINE CHONDROITIN COMPLEX PO SCH (21:05)
[2019-06-20] MEDS: Aspirin Chewable 81 MG TAB PO SCH (21:05)
[2019-06-20] MEDS: [UNRECOGNIZED DRUG - OTHER] PO SCH (21:05)
[2019-06-20] MEDS: Rivaroxaban 10 MG TAB PO SCH (21:06)
[2019-06-21] MEDS: Lantus 1000 UNITS/10 ML VIAL SC SCH (08:41)
[2019-06-21] MEDS: Ferrous Sulfate 325 MG TAB PO SCH (08:41)
[2019-06-21] MEDS: Furosemide 40 MG TAB PO SCH (08:41)
[2019-06-21] MEDS: Amlodipine 5 MG TAB PO SCH (08:41)
[2019-06-21] MEDS: HumaLOG 300 UNITS/3 ML VIAL SC PRN ×4 (08:42→17:12)
[2019-06-21] MEDS: Gabapentin 300 MG CAP PO SCH ×2 (11:43→20:35)
[2019-06-21] MEDS: Atorvastatin Calcium 40 MG TAB PO SCH (20:35)
[2019-06-21] MEDS: Aspirin Chewable 81 MG TAB PO SCH (20:35)
[2019-06-21] MEDS: Magnesium Oxide 400 MG TAB PO SCH (20:36)
[2019-06-21] MEDS: GLUCOSAMINE CHONDROITIN COMPLEX PO SCH (20:36)
[2019-06-21] MEDS: Multivitamin W/ Minerals 1 TAB PO SCH (20:36)
[2019-06-21] MEDS: [UNRECOGNIZED DRUG - OTHER] PO SCH (20:36)
[2019-06-21] MEDS: HAIR PO SCH (20:36)
[2019-06-21] MEDS: Rivaroxaban 10 MG TAB PO SCH (20:36)
[2019-06-22 07:30] VITALS: BP 125/70; TEMP 98
[2019-06-22] MEDS: Amlodipine 5 MG TAB PO SCH (08:54)
[2019-06-22] MEDS: Ferrous Sulfate 325 MG TAB PO SCH (08:54)
[2019-06-22] MEDS: Lantus 1000 UNITS/10 ML VIAL SC SCH (08:55)
[2019-06-22] MEDS: Furosemide 40 MG TAB PO SCH (08:58)
[2019-06-22] MEDS: HumaLOG 300 UNITS/3 ML VIAL SC PRN (12:07)
[2019-06-22] MEDS: Gabapentin 300 MG CAP PO SCH (12:07)
[2019-06-22 12:38] VITALS: BMI 28.4
== END 2019-06-22 14:00 | DRG 560 ==
LOC: MADMS 12:15
PROVIDERS: ADMIT Family Medicine; ATTEND Family Medicine
DX: S32.491D Other specified fracture of right acetabulum, subsequent encounter for fracture with routine healing (principal); I13.0 Hypertensive heart and chronic kidney disease with heart failure and stage 1 through stage 4 chronic kidney disease, or unspecified chronic kidney disease; S32.591D Other specified fracture of right pubis, subsequent encounter for fracture with routine healing; E11.40 Type 2 diabetes mellitus with diabetic neuropathy, unspecified; E11.319 Type 2 diabetes mellitus with unspecified diabetic retinopathy without macular edema; I48.2 Chronic atrial fibrillation; I50.9 Heart failure, unspecified; R56.9 Unspecified convulsions; N18.3 Chronic kidney disease, stage 3 (moderate); E11.22 Type 2 diabetes mellitus with diabetic chronic kidney disease; E11.649 Type 2 diabetes mellitus with hypoglycemia without coma; R53.1 Weakness; F41.9 Anxiety disorder, unspecified; E78.5 Hyperlipidemia, unspecified; R26.9 Unspecified abnormalities of gait and mobility; I25.10 Atherosclerotic heart disease of native coronary artery without angina pectoris; Z86.73 Personal history of transient ischemic attack (TIA), and cerebral infarction without residual deficits; Z95.2 Presence of prosthetic heart valve; Z95.1 Presence of aortocoronary bypass graft; Z98.42 Cataract extraction status, left eye; Z98.41 Cataract extraction status, right eye; Z90.49 Acquired absence of other specified parts of digestive tract; Z88.2 Allergy status to sulfonamides; W18.30XD Fall on same level, unspecified, subsequent encounter
CPT/HCPCS: 36415; 36416; 80048; 82565; 83036; 85014; 85018; 85025; 85049; J1815; J7070

== ENCOUNTER 2019-08-22 08:43 | Emergency (ER) | payer MEDICARE ==
[2019-08-22 09:19] LABS: #Basophils 0.1 thou/uL (0.0-0.2); #Eosinphils 0.1 thou/uL (0.0-0.7); #Lymphocytes 1.8 thou/uL (1.20-3.40); #Monocytes 0.9 thou/uL (0.11-0.59); #Neutrophils 7.1 thou/uL (1.40-6.50); %Basophils 0.8 % (0.0-1.0); %Eosinophils 0.9 % (0.0-10.0); %Lymphocytes 18.4 % (21.0-51.0); %Monocytes 8.6 % (0.0-10.0); %Neutrophils 71.3 % (42.0-75.0); Hemoglobin 12.7 g/dL (14.0-18.0); Mean Corpuscular HGB CONC 32.2 g/dL (32.0-36.0); Mean Corpuscular Hemoglobin 30.7 pg (27.0-31.0); Mean Corpuscular Volume 95.4 fL (78.0-98.0); Mean Platelet Volume 6.9 fL (7.4-10.4); Platelet Count 206 thou/uL (130-400); RBC Distribution Width 11.7 % (11.5-14.5); Red Blood Cell (RBC) Count 4.15 mill/uL (4.70-6.10); White Blood Cell (WBC) Count 9.9 thou/uL (4.8-10.8)
[2019-08-22] MEDS ORDERED: Sodium Chloride 0.9% 1,000 ML ONE (09:29)
--- NOTE | 2019-08-22 09:29 | RAD ---
EXAM: XR Chest 1 View Portable PROVIDED CLINICAL HISTORY: Syncope COMPARISON: 07/13/2015 FINDINGS: Cardiac and mediastinal silhouette is unchanged in appearance. Median sternotomy changes and atherosc lerotic vascular calcification are redemonstrated. Postoperative changes involving the left hemithorax with volume loss and left basilar pleural-parenchymal opacity appear unchanged with respec t to the prior exam. The right lung remains clear. There is no evidence for pneumothorax. IMPRESSION: Stable radiographic appearance of the chest.
[2019-08-22 09:38] LABS: ALT (SGPT) 28 U/L (8-55); AST (SGOT) 27 U/L (5-34); Albumin 3.7 g/dL (3.4-4.8); Alkaline Phosphatase 101 U/L (40-110); Anion Gap 20 mmol/L (10-20); BUN (Urea Nitrogen) 50 mg/dL (8.4-25.7); Bilirubin, Total 0.9 mg/dL (0.2-1.2); Calc. Creatinine Clearance 0 mL/min (70-130); Calcium 9.9 mg/dL (7.8-10.44); Carbon Dioxide 29 mmol/L (23-31); Chloride 95 mmol/L (98-107); Estimated GFR-MDRD 27; Globulin 3.3 g/dL (2.4-3.5); Glucose 185 mg/dL (83-110); Sodium 139 mmol/L (136-145)
--- NOTE | 2019-08-22 09:44 | RAD ---
2 views left hip: 08/22/2019 COMPARISON: None HISTORY: Trauma FINDINGS: Significant degenerative change noted with superior joint space narrowing and lateral aceta bular osteophyte formation. Prominent atherosclerotic calcification within the pelvis and imaged medial left thigh. No displaced fracture or evidence of dislocation is appreciated. IMPRESSION: Degenerative change. No displaced fracture or dislocation. If there is clinical concern f or radio-occult injury or the patient is unable to bear weight, cross-sectional imaging is recommended.
--- NOTE | 2019-08-22 09:53 | CT ---
Exam: CT brain PROVIDED CLINICAL HISTORY: Trauma COMPARISON: None FINDINGS: The ventricular system is normal in size and morphology. No evidence for intracranial hemorrhage or mass effect. The extracranial soft tissues and osseous structures demonstrate no evidence for an acute abnormality. IMPRESSION: No evidence for intracranial hemorrhage or mass effect.
[2019-08-22 09:56] LABS: CKMB 1.3 ng/mL (0-6.6)
[2019-08-22] MEDS ORDERED: Sodium Chloride Irrig Solution 250 ML BOT ONE (10:10)
[2019-08-22] MEDS ORDERED: Triple Antibiotic Oint 1 GM Packet ONE (10:29)
[2019-08-22 13:13] LABS: Bilirubin Negative (Negative); Blood, Urine Trace (Negative); Clarity Clear (Clear); Glucose, Urine (Dipstick) Negative (Negative); Leukocyte Negative (Negative); Nitrite Negative (Negative); Protein, Urine (Dipstick) Negative (Neg-Trace)
[2019-08-22 13:21] LABS: Bacteria/HPF Rare-Few HPF (None Seen); RBC/HPF 0-3 HPF (0-3); Squamous Epithelial 0-3 HPF (0-3); WBC/HPF None Seen HPF (0-3)
== END 2019-08-22 13:32 | disposition short-term general hospital (02) ==
LOC: MADERS 08:43
DX: R55 Syncope and collapse (principal); S51.812A Laceration without foreign body of left forearm, initial encounter; E86.0 Dehydration; R79.89 Other specified abnormal findings of blood chemistry; I25.10 Atherosclerotic heart disease of native coronary artery without angina pectoris; E11.9 Type 2 diabetes mellitus without complications; Z79.4 Long term (current) use of insulin; Z79.01 Long term (current) use of anticoagulants; Z79.82 Long term (current) use of aspirin; Z79.899 Other long term (current) drug therapy; W19.XXXA Unspecified fall, initial encounter
CPT/HCPCS: 36415; 70450; 71045; 80053; 81003; 81015; 82553; 84443; 84484; 85025; 93005; 94760; 96360; 96361; J7050

== ENCOUNTER 2019-10-01 16:10 | Inpatient (IN) | payer MEDICARE ==
[2019-10-01] MEDS ORDERED: Dextrose 50% Abboject 50 ML SYRINGE IVP PRN (20:07)
[2019-10-01] MEDS ORDERED: Dextrose 5% in Water 1,000 ML IV PRN (20:07)
[2019-10-01] MEDS ORDERED: Docusate Sodium 100 MG/10 ML UDCUP PO PRN (20:13)
[2019-10-01] MEDS ORDERED: Magnesium Oxide 400 MG TAB PO SCH ×2 (21:00→22:45)
[2019-10-01] MEDS: Aspirin Chewable 81 MG TAB PO SCH (22:15)
[2019-10-01] MEDS: levETIRAcetam 500 MG TAB PO SCH (22:16)
[2019-10-01] MEDS: Atorvastatin Calcium 40 MG TAB PO SCH (22:16)
[2019-10-01] MEDS: Multivitamin W/ Minerals 1 TAB PO SCH (22:16)
[2019-10-01] MEDS: GLUCOSAMINE 500 MG PO SCH (22:17)
[2019-10-01] MEDS: BIOTIN 2500 MCG PO SCH (22:17)
[2019-10-01] MEDS: Ubidecarenone 50 MG CAP PO SCH (22:18)
[2019-10-01] MEDS: Rivaroxaban 10 MG TAB PO SCH (22:18)
[2019-10-01] MEDS: HumaLOG 300 UNITS/3 ML VIAL SC PRN (22:19)
[2019-10-02] MEDS: HumaLOG 300 UNITS/3 ML VIAL SC PRN ×4 (07:50→22:03)
[2019-10-02 08:27] LABS: ALT (SGPT) 20 U/L (8-55); AST (SGOT) 22 U/L (5-34); Albumin 2.8 g/dL (3.4-4.8); Alkaline Phosphatase 109 U/L (40-110); Anion Gap 15 mmol/L (10-20); BUN (Urea Nitrogen) 20 mg/dL (8.4-25.7); Bilirubin, Total 0.6 mg/dL (0.2-1.2); Calc. Creatinine Clearance 60 mL/min (70-130); Calcium 8.3 mg/dL (7.8-10.44); Carbon Dioxide 21 mmol/L (23-31); Chloride 107 mmol/L (98-107); Estimated GFR-MDRD 58; Globulin 2.9 g/dL (2.4-3.5); Glucose 332 mg/dL (83-110); Potassium 3.2 mmol/L (3.5-5.1); Protein, Total 5.7 g/dL (5.8-8.1); Sodium 140 mmol/L (136-145)
[2019-10-02] MEDS: levETIRAcetam 500 MG TAB PO SCH ×2 (10:25→21:58)
[2019-10-02] MEDS: Fludrocortisone Acetate 0.1 MG TAB PO SCH (10:25)
[2019-10-02] MEDS ORDERED: Potassium Chloride 20 MEQ TAB PO SCH (12:45)
--- NOTE | 2019-10-02 15:56 | HP ---
PRIMARY CARE PHYSICIAN:Out of town REASON FOR ADMISSION: Skilled rehab in [facility] after recent hospitalization. HISTORY OF PRESENT ILLNESS AND COURSE: Mr. Drake is a 79-year-old male with history of hypertension; diabetes, insulin requiring; with history of multiple episodes of syncope and falls; pervious mild strokes. He has multiple cardiac workup in the past. He has had an event monitor placed by his machine buffer, Dr. Fernandez. The patient is a resident of [facility] in [place]. He gets around with his walker and was interacting appropriately per baseline reported status. The patient has had a recent episode of new-onset seizure. He was recently hospitalized in [facility] for this. Associated condition includes acute kidney injury which was resolved, metabolic acidosis secondary to acute kidney injury and likewise resolved, left carotid stenosis, right vertebral artery occlusion on top of his current long-term chronic conditions including diabetes type 2, coronary artery disease, paroxysmal atrial fibrillation, and old lacunar infarct, bilateral cerebellum. The patient was initially admitted to ICU unit. He has extensive cardio and neuro evaluations during this recent hospitalization. MRI of the brain without contrast showed no evidence of acute intracranial abnormality. CT angio of the brain showed severe stenosis of proximal left cervical internal carotid artery, moderate stenosis of 50% of the distal right cervical internal carotid artery just before the artery enters the carotid canal , occlusion of the distal right vertebral artery that extends into the intracranial extent. No evidence of thrombosis or occlusion intracranially. His chest x-ray showed no focal consolidation or edema. Ultrasound of bilateral kidneys was unremarkable. Upon arrival in the ER, the patient was intubated to protect his airway. He was subsequently admitted to ICU and consultation with Dr. Escoto for pulmonology care and Dr. Ashley Hernandez for neurology care. He was successfully extubated on the . The patient has had a slow and gentle recovery per report. He was placed on Keppra and has not had any further seizure activity during his stay. His medications were optimized prior to discharge as per report. When cleared for discharge by all specialists, the patient was deconditioned and needs further rehabilitation prior to going back to his residential place. He was then transferred to [facility] for skilled rehab. As evaluated today, the patient was comfortably resting in bed. No family members were present. The patient was easily awakened with verbal stimulus. He appears to be confused when awakened, but noticed me and able to answer simple questions with appropriateness. Initially, he thought he was in assisted living, but corrected himself that he is in the hospital for rehabilitation purposes. He has no further complaints at this point. He reports that he feels a lot better, but unable to walk much yet. PAST MEDICAL HISTORY: 1. Coronary artery disease, status post CABG. 2. Bicuspid aortic valve, status post replacement with porcine valve. 3. Paroxysmal atrial fibrillation, on long-term Xarelto. 4. Legally blind. 5. Cardiomyopathy with systolic dysfunction, EF around 40% to 45%. 6. Chronic kidney disease stage 3. 7. Previous stroke. 8. Insulin-dependent diabetes type 2 with insulin pump. 9. Diabetic retinopathy. 10. Diabetic neuropathy. 11. New-onset seizure. 12. Orthostatic hypotension. 13. History of falls. 14. History of syncopal episodes, multiple times. PAST PSYCHIATRIC HISTORY: Positive for depression and anxiety. PAST SURGICAL HISTORY: 1. Cholecystectomy. 2. Coronary artery bypass grafting. 3. Aortic bioprosthetic valve replacement in 2007. 4. Bilateral cataract removal. 5. Previous cardioversion. 6. Event monitor placement on 09/25/[address] Fernandez. SOCIAL HISTORY: Denies tobacco, alcohol, or illicit drug use. He is retired and lives in assisted living in [place]. He is a full code. His medical power of attorney general is his eldest son, Nasim Drake, who is a machine buffer and lives in [place]. He has a son who lives locally in [place], who is actively involved in the patient's care. FAMILY HISTORY: Mother at age of 74 with MS and father at age of 88 with MS. ALLERGIES: TO SULFA ANTIBIOTICS AND PREDNISONE. OF NOTE, THE PATIENT ALSO HAS A HISTORY OF ALLERGY TO AMLODIPINE AND CARVEDILOL LISTED PER RECORD, THIS IS CONFIRMED BY HIS SON THAT THESE ARE NOT ACTUALLY TRUE ALLERGIES, BUT THEY WERE LISTED ALLERGIES IN HIS MEDICAL RECORD TO PREVENT PEOPLE FROM RESTARTING THEM DUE TO CONCERN THAT THEY WERE CAUSING ORTHOSTATIC HYPOTENSION AND BRADYCARDIA IN THE PAST. CURRENT MEDICATIONS: 1. Lipitor 40 mg p.o. daily. 2. Xarelto 10 mg each night. 3. Biotin 1 mg daily. 4. Glucosamine 500 mg daily. 5. Multivitamin daily. 6. Aspirin 81 mg daily. 7. Florinef 0.1 mg daily. 8. Magnesium 500 mg p.o. daily. 9. Ubiquinol 100 mg daily. 10. . 11. Glucagon 1 mg IM p.r.n. 12. Humalog sliding scale. 13. Keppra 500 mg p.o. b.i.d. 14. Xarelto 15 mg p.o. at bedtime. 15. Coenzyme-Q 100 mg p.o. at bedtime. REVIEW OF SYSTEMS: GENERAL: Denies fever or chills. Reports fatigue, general weakness. HEENT: Legally blind. No acute cold symptoms. He is hard of hearing. CARDIO: No chest pain, dyspnea on exertion, paroxysmal nocturnal dyspnea. Respiratory: No shortness of breath, pain with breathing, bloody sputum, chronic cough, wheezing. GI: No nausea, vomiting, abdominal pain, diarrhea, rectal bleeding, melena, hematochezia, hematemesis. Reports constipation. GENITOURINARY: No dysuria, hematuria, frequency, urgency, incontinence. MUSCULOSKELETAL: Denies joint swelling. Reports intermittent joint pains. No myalgia. SKIN: Denies skin rashes, or pruritus. NEUROLOGIC: As per HPI, otherwise denies focal numbness, focal weakness. PSYCH: Denies hallucinations, insomnia, depression, anxiety. PHYSICAL EXAMINATION: VITAL SIGNS: Blood pressure 123/83, temperature 98.4, pulse 113, respirations 16, O2 sats 99%, repeat pulse 88. GENERAL: The patient is asleep comfortably, resting in bed, easily awakened with verbal stimulus. Alert and oriented, able to answer questions when awakened, comfortable on exam, not in distress. HEENT: Normocephalic, atraumatic. PERRL. Intact EOM. Anicteric sclerae. Oral mucosa is moist. Tongue in the midline. No tremors. NECK: Supple. No LAD. Flat JVD. LUNGS: Normal excursion. Clear to auscultation bilaterally. CARDIAC: Irregular. Normal S1 and S2. GI: Soft, nondistended. Normoactive bowel sounds. Nontender. Negative CVA tenderness bilaterally. EXTREMITIES: No edema. No cyanosis. SKIN: Intact. Good turgor. No rashes. No lesions. No ecchymoses. No purpura. NEUROLOGIC: Nonfocal. DTRs 2+. Gait unsteady. PSYCHIATRIC: Calm, appropriate mood and affect. LABORATORY DATA: 10/01/2019, white count 8.1, hemoglobin 11, hematocrit 33.8, and platelets 182. 09/25/2019, PT 13.8, INR 1.1, and aPTT 26.8. Chemistry on 10/01/2019, sodium 140, potassium 3.1, chloride 111, BUN 23, creatinine 1.10, estimated GFR 65, and glucose 203, calcium 7.9. Total cholesterol 105, triglycerides 94, LDL 44, and HDL 42. ASSESSMENT: 1. Deconditioning secondary to general weakness. 2. New-onset seizures. 3. Hypertension with history of orthostatic hypotension. 4. Paroxysmal atrial fibrillation. Rate controlled. 5. Diabetes type 2, insulin requiring. 6. Left carotid stenosis with right vertebral artery occlusion, medical management only. 7. Previous stroke (old lacunar infarct, bilateral cerebellum), unsteady gait, history of falls. 8. Dyslipidemia. 9. History of metabolic encephalopathy secondary to acute kidney injury. 10. History of mechanical ventilation, status post extubation secondary to prophylactic airway protection. PLAN: 1. The patient is admitted to [facility] for skilled rehab. We will refer to PT and OT. We will continue current medications as per list. Accu- Chek before meals and at bedtime. Sliding scale coverage with NovoLog. 2. Diet, 1800 kilocalorie AHA. 3. Activity, to be determined by therapist. 4. DVT prophylaxis, none. The patient is already on oral anticoagulation with Xarelto. 5. We will continue to monitor the patient's seizure precautions, fall precautions. Further recommendations depending on the hospital course. 6. Estimated length of stay, 2 to 3 weeks. 7. Code status full code per records. This was confirmed verbally by the patient. FOLLOWUP: 1. Dr. Wick for [facility] outpatient consultation for his left carotid stenosis when he is more stable. 2. Followup with Dr. Ashley Hernandez for neurology care. 3. Follow up with Dr. LINDA 1 to [address] [facility]. Job ID: [id number] [facility]
[2019-10-02] MEDS: Aspirin Chewable 81 MG TAB PO SCH (21:58)
[2019-10-02] MEDS: Atorvastatin Calcium 40 MG TAB PO SCH (21:58)
[2019-10-02] MEDS: Multivitamin W/ Minerals 1 TAB PO SCH (21:59)
[2019-10-02] MEDS: Rivaroxaban 10 MG TAB PO SCH (21:59)
[2019-10-02] MEDS: Magnesium Oxide 400 MG TAB PO SCH (21:59)
[2019-10-02] MEDS: GLUCOSAMINE 500 MG PO SCH (21:59)
[2019-10-02] MEDS: BIOTIN 2500 MCG PO SCH (21:59)
[2019-10-02] MEDS: Ubidecarenone 50 MG CAP PO SCH (22:00)
[2019-10-03 06:45] LABS: Anion Gap 14 mmol/L (10-20); BUN (Urea Nitrogen) 20 mg/dL (8.4-25.7); Calc. Creatinine Clearance 69 mL/min (70-130); Calcium 8.3 mg/dL (7.8-10.44); Carbon Dioxide 22 mmol/L (23-31); Chloride 108 mmol/L (98-107); Estimated GFR-MDRD 67; Glucose 217 mg/dL (83-110); Potassium 3.2 mmol/L (3.5-5.1); Sodium 141 mmol/L (136-145)
[2019-10-03] MEDS: levETIRAcetam 500 MG TAB PO SCH ×2 (08:09→21:16)
[2019-10-03] MEDS: Fludrocortisone Acetate 0.1 MG TAB PO SCH (08:09)
[2019-10-03] MEDS: HumaLOG 300 UNITS/3 ML VIAL SC PRN ×4 (08:09→21:15)
[2019-10-03] MEDS: Lantus 1000 UNITS/10 ML VIAL SC SCH (08:10)
[2019-10-03] MEDS ORDERED: Insulin Glargine 10 UNITS in Pre-Filled Syringe 1 EACH SC SCH (09:00)
[2019-10-03] MEDS: Magnesium Oxide 400 MG TAB PO SCH (21:16)
[2019-10-03] MEDS: Ubidecarenone 50 MG CAP PO SCH (21:16)
[2019-10-03] MEDS: Multivitamin W/ Minerals 1 TAB PO SCH (21:16)
[2019-10-03] MEDS: Rivaroxaban 10 MG TAB PO SCH (21:16)
[2019-10-03] MEDS: Atorvastatin Calcium 40 MG TAB PO SCH (21:16)
[2019-10-03] MEDS: GLUCOSAMINE 500 MG PO SCH (21:17)
[2019-10-03] MEDS: BIOTIN 2500 MCG PO SCH (21:17)
[2019-10-03] MEDS: Aspirin Chewable 81 MG TAB PO SCH (21:17)
[2019-10-04 05:53] LABS: Anion Gap 11 mmol/L (10-20); BUN (Urea Nitrogen) 21 mg/dL (8.4-25.7); Calc. Creatinine Clearance 68 mL/min (70-130); Calcium 8.2 mg/dL (7.8-10.44); Carbon Dioxide 24 mmol/L (23-31); Chloride 108 mmol/L (98-107); Estimated GFR-MDRD 66; Glucose 258 mg/dL (83-110); Potassium 3.4 mmol/L (3.5-5.1); Sodium 140 mmol/L (136-145)
[2019-10-04] MEDS: Fludrocortisone Acetate 0.1 MG TAB PO SCH (08:26)
[2019-10-04] MEDS: levETIRAcetam 500 MG TAB PO SCH ×2 (08:26→21:17)
[2019-10-04] MEDS: Lantus 1000 UNITS/10 ML VIAL SC SCH (08:27)
[2019-10-04] MEDS: HumaLOG 300 UNITS/3 ML VIAL SC PRN ×4 (08:27→21:20)
[2019-10-04] MEDS: Ubidecarenone 50 MG CAP PO SCH (21:16)
[2019-10-04] MEDS: Magnesium Oxide 400 MG TAB PO SCH (21:16)
[2019-10-04] MEDS: Atorvastatin Calcium 40 MG TAB PO SCH (21:17)
[2019-10-04] MEDS: Aspirin Chewable 81 MG TAB PO SCH (21:17)
[2019-10-04] MEDS: Rivaroxaban 10 MG TAB PO SCH (21:17)
[2019-10-04] MEDS: Multivitamin W/ Minerals 1 TAB PO SCH (21:17)
[2019-10-04] MEDS: GLUCOSAMINE 500 MG PO SCH (21:19)
[2019-10-04] MEDS: BIOTIN 2500 MCG PO SCH (21:19)
[2019-10-05 05:58] LABS: Hemoglobin 9.8 g/dL (14.0-18.0); Platelet Count 264 thou/uL (130-400)
[2019-10-05] MEDS: Lantus 1000 UNITS/10 ML VIAL SC SCH (08:39)
[2019-10-05] MEDS: levETIRAcetam 500 MG TAB PO SCH ×2 (08:39→21:25)
[2019-10-05] MEDS: Fludrocortisone Acetate 0.1 MG TAB PO SCH (08:39)
[2019-10-05] MEDS ORDERED: Fludrocortisone Acetate 0.1 MG TAB PO PRN (10:46)
[2019-10-05] MEDS: HumaLOG 300 UNITS/3 ML VIAL SC PRN ×3 (12:09→21:34)
[2019-10-05] MEDS ORDERED: Triple Antibiotic Ointment 15 GM TUBE TOP SCH (21:00)
[2019-10-05] MEDS: Atorvastatin Calcium 40 MG TAB PO SCH (21:25)
[2019-10-05] MEDS: Aspirin Chewable 81 MG TAB PO SCH (21:25)
[2019-10-05] MEDS: Ubidecarenone 50 MG CAP PO SCH (21:25)
[2019-10-05] MEDS: Magnesium Oxide 400 MG TAB PO SCH (21:26)
[2019-10-05] MEDS: Multivitamin W/ Minerals 1 TAB PO SCH (21:26)
[2019-10-05] MEDS: Rivaroxaban 10 MG TAB PO SCH (21:27)
[2019-10-06] MEDS: levETIRAcetam 500 MG TAB PO SCH ×2 (07:59→22:00)
[2019-10-06] MEDS: HumaLOG 300 UNITS/3 ML VIAL SC PRN ×4 (07:59→22:02)
[2019-10-06] MEDS: Lantus 1000 UNITS/10 ML VIAL SC SCH (07:59)
[2019-10-06] MEDS: Triple Antibiotic Oint 1 GM Packet TOP SCH ×2 (08:21→22:00)
[2019-10-06] MEDS: Aspirin Chewable 81 MG TAB PO SCH (21:59)
[2019-10-06] MEDS: Atorvastatin Calcium 40 MG TAB PO SCH (21:59)
[2019-10-06] MEDS: Rivaroxaban 10 MG TAB PO SCH (22:00)
[2019-10-06] MEDS: Multivitamin W/ Minerals 1 TAB PO SCH (22:00)
[2019-10-06] MEDS: Magnesium Oxide 400 MG TAB PO SCH (22:00)
[2019-10-06] MEDS: Ubidecarenone 50 MG CAP PO SCH (22:01)
[2019-10-07] MEDS: Lantus 1000 UNITS/10 ML VIAL SC SCH (08:32)
[2019-10-07] MEDS: HumaLOG 300 UNITS/3 ML VIAL SC PRN ×2 (08:32→11:58)
[2019-10-07] MEDS: levETIRAcetam 500 MG TAB PO SCH ×2 (08:33→20:53)
[2019-10-07] MEDS: Triple Antibiotic Oint 1 GM Packet TOP SCH ×2 (08:33→20:55)
[2019-10-07] MEDS ORDERED: HumaLOG 300 UNITS/3 ML VIAL SC PRN ×2 (12:10→12:30)
[2019-10-07] MEDS: Ubidecarenone 50 MG CAP PO SCH (20:51)
[2019-10-07] MEDS: Multivitamin W/ Minerals 1 TAB PO SCH (20:52)
[2019-10-07] MEDS: Atorvastatin Calcium 40 MG TAB PO SCH (20:53)
[2019-10-07] MEDS: Magnesium Oxide 400 MG TAB PO SCH (20:53)
[2019-10-07] MEDS: Aspirin Chewable 81 MG TAB PO SCH (20:54)
[2019-10-07] MEDS: Rivaroxaban 10 MG TAB PO SCH (20:54)
[2019-10-08] MEDS: levETIRAcetam 500 MG TAB PO SCH ×2 (08:39→20:19)
[2019-10-08] MEDS: Triple Antibiotic Oint 1 GM Packet TOP SCH ×2 (08:39→20:29)
[2019-10-08] MEDS: Potassium Chloride 20 MEQ TAB PO SCH (08:39)
[2019-10-08] MEDS: HumaLOG 300 UNITS/3 ML VIAL SC PRN ×2 (08:40→11:52)
[2019-10-08] MEDS: Lantus 1000 UNITS/10 ML VIAL SC SCH (08:40)
[2019-10-08] MEDS: Ubidecarenone 50 MG CAP PO SCH (20:19)
[2019-10-08] MEDS: Aspirin Chewable 81 MG TAB PO SCH (20:19)
[2019-10-08] MEDS: Atorvastatin Calcium 40 MG TAB PO SCH (20:19)
[2019-10-08] MEDS: Magnesium Oxide 400 MG TAB PO SCH (20:19)
[2019-10-08] MEDS: Multivitamin W/ Minerals 1 TAB PO SCH (20:20)
[2019-10-08] MEDS: Rivaroxaban 10 MG TAB PO SCH (20:21)
[2019-10-09] MEDS: Lantus 1000 UNITS/10 ML VIAL SC SCH (08:30)
[2019-10-09] MEDS: levETIRAcetam 500 MG TAB PO SCH ×2 (08:30→20:27)
[2019-10-09] MEDS: Potassium Chloride 20 MEQ TAB PO SCH (08:30)
[2019-10-09] MEDS: Triple Antibiotic Oint 1 GM Packet TOP SCH ×2 (08:30→20:31)
[2019-10-09] MEDS: HumaLOG 300 UNITS/3 ML VIAL SC PRN ×2 (12:42→17:40)
[2019-10-09] MEDS ORDERED: ALPRAZolam 0.25 MG TAB PO PRN (19:03)
[2019-10-09] MEDS: Ubidecarenone 50 MG CAP PO SCH (20:27)
[2019-10-09] MEDS: Aspirin Chewable 81 MG TAB PO SCH (20:27)
[2019-10-09] MEDS: Atorvastatin Calcium 40 MG TAB PO SCH (20:27)
[2019-10-09] MEDS: Multivitamin W/ Minerals 1 TAB PO SCH (20:27)
[2019-10-09] MEDS: Rivaroxaban 10 MG TAB PO SCH (20:28)
[2019-10-09] MEDS: Magnesium Oxide 400 MG TAB PO SCH (20:28)
[2019-10-10] MEDS: Triple Antibiotic Oint 1 GM Packet TOP SCH ×2 (08:38→20:56)
[2019-10-10] MEDS: Potassium Chloride 20 MEQ TAB PO SCH (08:38)
[2019-10-10] MEDS: Escitalopram Oxalate 10 mg Tablet PO SCH (08:38)
[2019-10-10] MEDS: levETIRAcetam 500 MG TAB PO SCH ×2 (08:38→20:53)
[2019-10-10] MEDS: Lantus 1000 UNITS/10 ML VIAL SC SCH (08:39)
[2019-10-10] MEDS: HumaLOG 300 UNITS/3 ML VIAL SC PRN ×2 (08:40→12:11)
[2019-10-10] MEDS: Ubidecarenone 50 MG CAP PO SCH (20:51)
[2019-10-10] MEDS: Atorvastatin Calcium 40 MG TAB PO SCH (20:52)
[2019-10-10] MEDS: Rivaroxaban 10 MG TAB PO SCH (20:53)
[2019-10-10] MEDS: Aspirin Chewable 81 MG TAB PO SCH (20:53)
[2019-10-10] MEDS: Multivitamin W/ Minerals 1 TAB PO SCH (20:55)
[2019-10-10] MEDS: Magnesium Oxide 400 MG TAB PO SCH (20:55)
[2019-10-11] MEDS: Escitalopram Oxalate 10 mg Tablet PO SCH (08:06)
[2019-10-11] MEDS: levETIRAcetam 500 MG TAB PO SCH (08:06)
[2019-10-11] MEDS: Potassium Chloride 20 MEQ TAB PO SCH (08:06)
[2019-10-11] MEDS: Lantus 1000 UNITS/10 ML VIAL SC SCH (08:06)
[2019-10-11] MEDS: Triple Antibiotic Oint 1 GM Packet TOP SCH ×2 (08:06→20:06)
[2019-10-11] MEDS: HumaLOG 300 UNITS/3 ML VIAL SC PRN (08:07)
[2019-10-11 13:31] LABS: #Basophils 0.1 thou/uL (0.0-0.2); #Lymphocytes 0.8 thou/uL (1.20-3.40); #Monocytes 0.6 thou/uL (0.11-0.59); #Neutrophils 4.2 thou/uL (1.40-6.50); %Basophils 2.6 % (0.0-1.0); %Eosinophils 0.4 % (0.0-10.0); %Lymphocytes 14.1 % (21.0-51.0); %Monocytes 10.2 % (0.0-10.0); %Neutrophils 72.8 % (42.0-75.0); Hemoglobin 9.6 g/dL (14.0-18.0); Mean Corpuscular Hemoglobin 30.7 pg (27.0-31.0); Mean Corpuscular Volume 98.8 fL (78.0-98.0); Platelet Count 390 thou/uL (130-400); RBC Distribution Width 13.8 % (11.5-14.5); Red Blood Cell (RBC) Count 3.14 mill/uL (4.70-6.10); White Blood Cell (WBC) Count 5.8 thou/uL (4.8-10.8)
[2019-10-11 13:45] LABS: ALT (SGPT) 27 U/L (8-55); AST (SGOT) 39 U/L (5-34); Albumin 2.9 g/dL (3.4-4.8); Alkaline Phosphatase 106 U/L (40-110); Anion Gap 14 mmol/L (10-20); BUN (Urea Nitrogen) 25 mg/dL (8.4-25.7); Bilirubin, Total 0.8 mg/dL (0.2-1.2); Calc. Creatinine Clearance 54 mL/min (70-130); Calcium 8.4 mg/dL (7.8-10.44); Carbon Dioxide 25 mmol/L (23-31); Chloride 103 mmol/L (98-107); Estimated GFR-MDRD 52; Globulin 3.2 g/dL (2.4-3.5); Glucose 94 mg/dL (83-110); Potassium 5.2 mmol/L (3.5-5.1); Protein, Total 6.1 g/dL (5.8-8.1); Sodium 137 mmol/L (136-145)
[2019-10-11 15:35] LABS: Bilirubin Negative (Negative); Blood, Urine Negative (Negative); Clarity Hazy (Clear); Glucose, Urine (Dipstick) Negative (Negative); Leukocyte Negative (Negative); Nitrite Negative (Negative); Protein, Urine (Dipstick) > or equal to 300 mg/dL (Neg-Trace); Urine Culture Reflex No No; Urobilinogen 0.2 mg/dL (Less than 2)
[2019-10-11 15:36] LABS: Bacteria/HPF Rare-Few HPF (None Seen); RBC/HPF 0-3 HPF (0-3); Squamous Epithelial 0-3 HPF (0-3); WBC/HPF 0-3 HPF (0-3)
[2019-10-11] MEDS ORDERED: Furosemide 20 MG TAB PO SCH (16:45)
[2019-10-11] MEDS ORDERED: Ferrous Sulfate 325 MG TAB PO SCH (16:45)
--- NOTE | 2019-10-11 17:44 | RAD ---
Single view of the chest INDICATION: History of volume retention COMPARISON: Prior exam dated September 29, 2019 IMPRESSION: Left-sided pleural parenchymal opacities persist. Mild cardiomegaly and pulmonary vascula r congestion is stable. Post-CABG changes stable. Right lung is clear. No acute osseous abnormality is evident. IMPRESSION: Stable exam.
[2019-10-11] MEDS: Magnesium Oxide 400 MG TAB PO SCH (20:02)
[2019-10-11] MEDS: Ubidecarenone 50 MG CAP PO SCH (20:03)
[2019-10-11] MEDS: Multivitamin W/ Minerals 1 TAB PO SCH (20:03)
[2019-10-11] MEDS: Rivaroxaban 10 MG TAB PO SCH (20:04)
[2019-10-11] MEDS: Atorvastatin Calcium 40 MG TAB PO SCH (20:05)
[2019-10-11] MEDS: Aspirin Chewable 81 MG TAB PO SCH (20:05)
[2019-10-11] MEDS ORDERED: Loperamide HCl 2 MG CAP PO PRN (22:01)
[2019-10-12 05:25] LABS: Hemoglobin 9.6 g/dL (14.0-18.0); Platelet Count 357 thou/uL (130-400)
[2019-10-12 05:39] LABS: ALT (SGPT) 27 U/L (8-55); AST (SGOT) 45 U/L (5-34); Albumin 2.8 g/dL (3.4-4.8); Alkaline Phosphatase 101 U/L (40-110); Anion Gap 15 mmol/L (10-20); BUN (Urea Nitrogen) 25 mg/dL (8.4-25.7); Bilirubin, Total 0.8 mg/dL (0.2-1.2); Calc. Creatinine Clearance 54 mL/min (70-130); Calcium 8.3 mg/dL (7.8-10.44); Carbon Dioxide 26 mmol/L (23-31); Chloride 101 mmol/L (98-107); Estimated GFR-MDRD 53; Globulin 3.3 g/dL (2.4-3.5); Glucose 120 mg/dL (83-110); Potassium 4.9 mmol/L (3.5-5.1); Protein, Total 6.1 g/dL (5.8-8.1); Sodium 137 mmol/L (136-145)
[2019-10-12] MEDS: Triple Antibiotic Oint 1 GM Packet TOP SCH ×2 (08:44→21:00)
[2019-10-12] MEDS: Ferrous Sulfate 325 MG TAB PO SCH (08:44)
[2019-10-12] MEDS: Lantus 1000 UNITS/10 ML VIAL SC SCH (08:45)
[2019-10-12] MEDS: Furosemide 20 MG TAB PO SCH ×2 (10:40→11:23)
[2019-10-12 11:12] VITALS: BMI 28.0
[2019-10-12 12:38] LABS: Hemoglobin A1c 7.9 % (4.0-6.0)
[2019-10-12 12:41] LABS: Iron 21 ug/dL (65-175); Iron Binding Capacity, Total 240 mcg/dL (261-462)
[2019-10-12] MEDS: Acetaminophen 325 MG TAB PO PRN (19:50)
[2019-10-12] MEDS: Loperamide HCl 2 MG CAP PO PRN (19:50)
[2019-10-12] MEDS: Multivitamin W/ Minerals 1 TAB PO SCH (20:59)
[2019-10-12] MEDS: Atorvastatin Calcium 40 MG TAB PO SCH (20:59)
[2019-10-12] MEDS: Ubidecarenone 50 MG CAP PO SCH (20:59)
[2019-10-12] MEDS: levETIRAcetam 500 MG TAB PO SCH (20:59)
[2019-10-12] MEDS: Magnesium Oxide 400 MG TAB PO SCH (20:59)
[2019-10-12] MEDS ORDERED: levETIRAcetam 500 mg/5 ml Oral Solution PO SCH (21:00)
[2019-10-13 05:46] LABS: #Basophils 0.1 thou/uL (0.0-0.2); #Lymphocytes 1.1 thou/uL (1.20-3.40); #Monocytes 0.3 thou/uL (0.11-0.59); #Neutrophils 2.5 thou/uL (1.40-6.50); %Basophils 1.7 % (0.0-1.0); %Eosinophils 0.4 % (0.0-10.0); %Lymphocytes 26.5 % (21.0-51.0); %Monocytes 8.7 % (0.0-10.0); %Neutrophils 62.8 % (42.0-75.0); Hemoglobin 10.5 g/dL (14.0-18.0); Mean Corpuscular HGB CONC 30.8 g/dL (32.0-36.0); Mean Corpuscular Hemoglobin 30.4 pg (27.0-31.0); Mean Corpuscular Volume 98.5 fL (78.0-98.0); Mean Platelet Volume 5.8 fL (7.4-10.4); Platelet Count 357 thou/uL (130-400); RBC Distribution Width 13.8 % (11.5-14.5); Red Blood Cell (RBC) Count 3.46 mill/uL (4.70-6.10)
[2019-10-13 06:04] LABS: ALT (SGPT) 30 U/L (8-55); AST (SGOT) 52 U/L (5-34); Albumin 2.9 g/dL (3.4-4.8); Alkaline Phosphatase 104 U/L (40-110); Anion Gap 15 mmol/L (10-20); BUN (Urea Nitrogen) 24 mg/dL (8.4-25.7); Bilirubin, Total 0.8 mg/dL (0.2-1.2); Calc. Creatinine Clearance 51 mL/min (70-130); Calcium 8.3 mg/dL (7.8-10.44); Carbon Dioxide 26 mmol/L (23-31); Chloride 100 mmol/L (98-107); Estimated GFR-MDRD 51; Globulin 3.3 g/dL (2.4-3.5); Glucose 128 mg/dL (83-110); Potassium 4.6 mmol/L (3.5-5.1); Protein, Total 6.2 g/dL (5.8-8.1); Sodium 136 mmol/L (136-145)
[2019-10-13] MEDS: Acetaminophen 325 MG TAB PO PRN (08:28)
[2019-10-13] MEDS: Triple Antibiotic Oint 1 GM Packet TOP SCH ×2 (08:29→20:30)
[2019-10-13] MEDS: levETIRAcetam 500 MG TAB PO SCH (08:29)
[2019-10-13] MEDS: Ferrous Sulfate 325 MG TAB PO SCH (08:34)
[2019-10-13] MEDS: Lantus 1000 UNITS/10 ML VIAL SC SCH (08:34)
[2019-10-13] MEDS ORDERED: Furosemide 20 MG TAB PO SCH (09:00)
[2019-10-13] MEDS: Ubidecarenone 50 MG CAP PO SCH (20:30)
[2019-10-13] MEDS: Multivitamin W/ Minerals 1 TAB PO SCH (20:30)
[2019-10-13] MEDS: Atorvastatin Calcium 40 MG TAB PO SCH (20:31)
[2019-10-13] MEDS: Magnesium Oxide 400 MG TAB PO SCH (20:31)
[2019-10-13] MEDS: Loperamide HCl 2 MG CAP PO PRN (20:31)
[2019-10-14] MEDS: Acetaminophen 325 MG TAB PO PRN (04:46)
[2019-10-14 06:43] VITALS: BP 104/60; TEMP 98.4
[2019-10-14 07:19] LABS: Hemoglobin 9.9 g/dL (14.0-18.0); Mean Corpuscular Volume 96.6 fL (78.0-98.0); Mean Platelet Volume 5.9 fL (7.4-10.4); Platelet Count 303 thou/uL (130-400); RBC Distribution Width 13.5 % (11.5-14.5); Red Blood Cell (RBC) Count 3.29 mill/uL (4.70-6.10); White Blood Cell (WBC) Count 2.2 thou/uL (4.8-10.8)
[2019-10-14 07:32] LABS: Anisocytosis SLIGHT = 6-15 cells (100X) (0-5/hpf); Band 1 % (5-11); Lymphocytes 26 % (21-51); MDiff Complete? YES; Monocytes 11 % (0-10); Neutrophil 62 % (42-75); Platelet Morphology Comment Appears Adequate
[2019-10-14 07:36] LABS: ALT (SGPT) 24 U/L (8-55); AST (SGOT) 47 U/L (5-34); Albumin 2.4 g/dL (3.4-4.8); Alkaline Phosphatase 89 U/L (40-110); Anion Gap 12 mmol/L (10-20); BUN (Urea Nitrogen) 27 mg/dL (8.4-25.7); Bilirubin, Total 0.5 mg/dL (0.2-1.2); Calc. Creatinine Clearance 51 mL/min (70-130); Calcium 7.6 mg/dL (7.8-10.44); Carbon Dioxide 26 mmol/L (23-31); Chloride 102 mmol/L (98-107); Estimated GFR-MDRD 52; Globulin 2.9 g/dL (2.4-3.5); Glucose 148 mg/dL (83-110); Potassium 4.4 mmol/L (3.5-5.1); Protein, Total 5.3 g/dL (5.8-8.1); Sodium 136 mmol/L (136-145)
[2019-10-14] MEDS: Ferrous Sulfate 325 MG TAB PO SCH ×2 (08:08→08:11)
[2019-10-14] MEDS: Triple Antibiotic Oint 1 GM Packet TOP SCH (08:08)
[2019-10-14] MEDS: Lantus 1000 UNITS/10 ML VIAL SC SCH (08:09)
--- NOTE | 2019-10-14 08:12 | RAD ---
XR Chest 1 View Portable HISTORY: Low oxygen saturation COMPARISON: 10/11/2019 FINDINGS: Changes of median sternotomy are again seen. The heart size enlarged. There is pulmonary va scular congestion parenchymal opacities in the left lower lung are again seen. No pneumothoraces are identified. There is suggestion of left pleural effusion.
[2019-10-14 09:01] LABS: CKMB 0.6 ng/mL (0-6.6); Troponin I 0.061 ng/mL (< 0.028)
--- NOTE | 2019-10-15 11:28 | DIS ---
DATE OF ADMISSION: 10/01/2019 DATE OF DISCHARGE: 10/14/2019 NEUROLOGIST: Dr. Hackett. DRAWBENCH OPERATOR: Dr. Fernandez. REASON FOR ADMISSION: Skilled rehab in [place] after the recent hospitalization. DIAGNOSES: 1. Altered mental status. 2. Acute febrile illness, probable sepsis. 3. Acute gastroenteritis. 4. Elevated troponin. 5. Mildly elevated ALT. 6. Seizure, new onset, diagnosed in August 2019. 7. Paroxysmal atrial fibrillation, rate controlled. 8. Diabetes type 2, insulin requiring. 9. History of orthostatic hypotension. 10. Dyslipidemia. 11. Left carotid stenosis with right vertebral artery occlusion for medical management only, pending cardiovascular outpatient consultation with Dr. Wick. 12. History of metabolic encephalopathy during his most recent hospitalization in August of 2020. 13. History of mechanical ventilation for prophylactic airway protection secondary to seizure. CURRENT MEDICATIONS: 1. Lipitor 40 mg p.o. daily. 2. Xarelto 10 mg p.o. each night, held on 10/13/2019 secondary to melenic stools. 3. Glucosamine 500 mg daily. 4. Multivitamin 1 tablet daily. 5. Aspirin 81 mg daily, held 10/13/2019. 6. Florinef 0.1 mg p.o. daily p.r.n. for orthostatic hypotension. 7. Magnesium 500 mg p.o. daily p.o. daily. 8. Ubiquinol 100 mg p.o. daily. 9. Glucagon 1 mg IM p.r.n. 10. Humalog sliding scale. 11. Coenzyme-Q 100 mg p.o. at bedtime. DISPOSITION: [facility] for higher level of care. CONDITION ON DISCHARGE: Guarded. HISTORY OF THE PRESENT ILLNESS AND HOSPITAL COURSE: Mr. Drake is a 79-year-old male with multiple chronic medical conditions including diabetes, insulin dependent, hypertension associated with orthostatic hypotension, multiple episodes of syncope and falls, previous strokes leaving him with unsteady gait, CAD and atrial fibrillation. The patient was recently admitted to [facility] secondary to new onset seizure activities. After further neurologic workup, the patient was started on Keppra at [address] by [address]. Hackett. The patient has been seizure-free since and patient was subsequently transferred to [place] on 10/01/2019 for deconditioning. While in rehab, the patient had a struggle following instructions and cooperating with therapist secondary to general weakness and does not want to work or to move around much. Eventually the patient started cooperating with the therapist and started to walk some with the use of rolling walker. Over the past 3 days, the patient was noted to be more anxious, aggressive, and not cooperative with the staff. He refuses several times to work with the therapist. He continued to refuse eating, because he feels that he is full all the time. The patient had a gradual weight loss from admitting weight from 190 to 176 pounds prior to discharge secondary to poor oral intake. The patient was also noted to be more depressed and has been complaining to the staff that this is against his will to stay in rehab and this is not what he likes and he wants. The patient's condition continued and a trial of withholding the Keppra was recommended, after his latest Keppra level was confirmed at 37 on 10/10/2019. The patient was also reported to be sleeping more both during nighttime and daytime and with less interaction. On 10/10/2019, he was noted to have first episode of low-grade fever at 100. Infectious workup was obtained. Urinalysis was negative for pyuria. White count was 5.8. Blood cultures were negative as well. After Keppra was withheld for the 1st 24 hours, the patient's mental status improved. In consultation with Dr. Hackett, the patient was started back on Keppra at a lower dose of 250 mg p.o. b.i.d. on 10/12/2019. The patient then started to have a recurrence of low-grade fever, T-max of 100.7, that was noted intermittently. He was also reported to have melenic watery loose stools and developed bilateral leg edema up to the thigh. He was tried on short course of oral diuretic and bilateral leg edema improved. His stool came back negative for Hemoccult. Stool cultures were pending. Flu swab was negative as well. Repeat urine on 10/14/2019 was unremarkable. White count trended down from 5.8 to 2.2 on 10/14/2019. His H and H were stable between 9.6 to 10.5 with a latest of 9.9 on 10/14/2019. On the morning of 10/14/2019, patient was reported to be very lethargic more than usual and continued to have low-grade temperature thus the patient was transferred to [facility] for further evaluation and higher level of care. Above status was discussed with both the patient's sons Nasim Drake and Arias Drake, both were consulted on the phone, who concur with the plan of care to transfer patient to [facility] for appropriate management/specially care. Prior to discharge, the patient's code status was confirmed with his son/medical power of real estate attorney, Dr. Nasim Drake, who confirmed that the patient's code status should be changed to CPR only without intubation, but intubation p.r.n. for prophylactic purposes. PHYSICAL EXAMINATION: VITAL SIGNS: Prior to discharge, blood pressure 104/60, temperature 98.4, pulse 77, respirations 16, O2 sats 91% on room air and 97% at 2 L per nasal cannula. GENERAL: When examined, the patient was comfortably resting in bed, asleep, easily awakened with verbal and tactile stimuli, but the patient is very lethargic and easily goes back to sleep. RESPIRATORY: He is breathing normally without tachypnea and use of accessory muscles. CARDIOVASCULAR: Heart rate is rate controlled with normal S1 and S2. ABDOMEN: Flat, soft. Normoactive bowel sounds. Nondistended, nontender. No rebound or guarding. Negative CVA tenderness bilaterally. SKIN: Pale, warm. NEUROLOGIC: Moves all extremities symmetrically. The patient could hardly carry a good conversation as he is lethargic. Time spent in examining the patient, coordinating care, calling the hospitalist and the family is 40 minutes. Job ID: [id number]
== END 2019-10-14 12:50 | disposition short-term general hospital (02) | DRG 100 ==
LOC: MADMS 16:10 → UNDOADMIN 16:10 → MADMS 17:10
PROVIDERS: ADMIT Family Medicine; ATTEND Family Medicine
DX: R56.9 Unspecified convulsions (principal); A41.9 Sepsis, unspecified organism; I25.10 Atherosclerotic heart disease of native coronary artery without angina pectoris; I48.0 Paroxysmal atrial fibrillation; R53.81 Other malaise; Z79.51 Long term (current) use of inhaled steroids; Z95.2 Presence of prosthetic heart valve; H54.8 Legal blindness, as defined in USA; E11.22 Type 2 diabetes mellitus with diabetic chronic kidney disease; E11.319 Type 2 diabetes mellitus with unspecified diabetic retinopathy without macular edema; E11.40 Type 2 diabetes mellitus with diabetic neuropathy, unspecified; F32.9 Major depressive disorder, single episode, unspecified; F41.9 Anxiety disorder, unspecified; Z90.49 Acquired absence of other specified parts of digestive tract; Z95.1 Presence of aortocoronary bypass graft; Z88.2 Allergy status to sulfonamides; Z91.041 Radiographic dye allergy status; Z79.82 Long term (current) use of aspirin; Z79.899 Other long term (current) drug therapy; R53.1 Weakness; I65.22 Occlusion and stenosis of left carotid artery; I65.02 Occlusion and stenosis of left vertebral artery; Z86.73 Personal history of transient ischemic attack (TIA), and cerebral infarction without residual deficits; R26.81 Unsteadiness on feet; E11.65 Type 2 diabetes mellitus with hyperglycemia; I12.9 Hypertensive chronic kidney disease with stage 1 through stage 4 chronic kidney disease, or unspecified chronic kidney disease; N18.3 Chronic kidney disease, stage 3 (moderate); D64.9 Anemia, unspecified; E87.5 Hyperkalemia; E88.09 Other disorders of plasma-protein metabolism, not elsewhere classified; R63.0 Anorexia; Z68.27 Body mass index [BMI] 27.0-27.9, adult; Z79.4 Long term (current) use of insulin; K52.9 Noninfective gastroenteritis and colitis, unspecified
CPT/HCPCS: 36415; 36416; 71045; 80048; 80053; 80177; 81001; 82274; 82553; 82565; 82728; 83036; 83540; 83550; 83605; 83735; 83880; 84134; 84443; 84484; 85014; 85018; 85025; 85049; 87040; 87045; 87046; 87081; 87324; 87427; 87449; 87804; J1815

== ENCOUNTER 2020-07-27 19:05 | Emergency (ER) | payer MEDICARE ==
[2020-07-27 20:15] LABS: Band 6 % (5-11); Hemoglobin 13.2 g/dL (14.0-18.0); Lymphocytes 10 % (21-51); MDiff Complete? YES; Mean Corpuscular HGB CONC 32.1 g/dL (32.0-36.0); Mean Corpuscular Hemoglobin 32.7 pg (27.0-31.0); Mean Platelet Volume 6.9 fL (7.4-10.4); Monocytes 16 % (0-10); Neutrophil 64 % (42-75); Platelet Count 137 thou/uL (130-400); Platelet Morphology Comment Appears Decreased; RBC Distribution Width 12.8 % (11.5-14.5); RBC Morphology Normal; Reactive Lymphocytes 4 % (0-10); Red Blood Cell (RBC) Count 4.05 mill/uL (4.70-6.10)
[2020-07-27] MEDS ORDERED: Dextrose 50% Abboject 50 ML SYRINGE ONE (20:15)
[2020-07-27 20:17] LABS: ALT (SGPT) 25 U/L (8-55); AST (SGOT) 42 U/L (5-34); Albumin 3.3 g/dL (3.4-4.8); Alkaline Phosphatase 182 U/L (40-110); Anion Gap 17 mmol/L (10-20); BUN (Urea Nitrogen) 22 mg/dL (8.4-25.7); Bilirubin, Total 0.3 mg/dL (0.2-1.2); Calc. Creatinine Clearance 0 mL/min (70-130); Calcium 8.5 mg/dL (7.8-10.44); Carbon Dioxide 23 mmol/L (23-31); Chloride 102 mmol/L (98-107); Estimated GFR-MDRD 66; Globulin 3.2 g/dL (2.4-3.5); Potassium 3.9 mmol/L (3.5-5.1); Protein, Total 6.5 g/dL (5.8-8.1); Sodium 138 mmol/L (136-145)
[2020-07-27 20:19] LABS: Bilirubin Negative (Negative); Blood, Urine Small (Negative); Clarity Clear (Clear); Glucose, Urine (Dipstick) Negative (Negative); Ketone, Urine Negative (Negative); Leukocyte Negative (Negative); Nitrite Negative (Negative); Protein, Urine (Dipstick) > or equal to 300 mg/dL (Neg-Trace); Urobilinogen 0.2 mg/dL (Less than 2)
[2020-07-27 20:20] LABS: Glucose 58 mg/dL (83-110)
[2020-07-27] MEDS ORDERED: Dextrose 5 % And 0.9 % NaCl 1,000 ML ONE (20:23)
[2020-07-27 20:26] LABS: Bacteria/HPF None Seen HPF (None Seen); Squamous Epithelial 0-3 HPF (0-3); WBC/HPF None Seen HPF (0-3)
--- NOTE | 2020-07-27 20:49 | RAD ---
PORTABLE CHEST: 07/27/20 HISTORY: Mental status change. COMPARISON: 10/14/19. FINDINGS: Cardiomegaly with mild vascular congestion. Interstitial infiltrates bilaterally may represent edema. There are small effusions slightly larger on the left similar to the prior exam. IMPRESSION: Cardiomegaly with vascular congestion. Evidence of interstitial congestion and interstitial edema. Titus perimposed infiltrates cannot be excluded. Small to moderate left effusion. POS: AGW
== END 2020-07-27 22:57 | disposition short-term general hospital (02) ==
LOC: MADERS 19:05
DX: E11.649 Type 2 diabetes mellitus with hypoglycemia without coma (principal); I11.0 Hypertensive heart disease with heart failure; I50.9 Heart failure, unspecified; I25.10 Atherosclerotic heart disease of native coronary artery without angina pectoris; I25.2 Old myocardial infarction; I38 Endocarditis, valve unspecified; I35.0 Nonrheumatic aortic (valve) stenosis; Z79.01 Long term (current) use of anticoagulants; Z79.899 Other long term (current) drug therapy; Z79.82 Long term (current) use of aspirin; Z79.4 Long term (current) use of insulin
CPT/HCPCS: 36415; 36416; 71045; 80053; 81003; 81015; 83735; 85025; 93005; 96374; J7042

== ENCOUNTER 2020-09-01 13:13 | Outpatient (CLI) | payer MEDICARE ==
[2020-09-01 13:37] LABS: #Eosinphils 0.2 thou/uL (0.0-0.7); #Lymphocytes 1.5 thou/uL (1.20-3.40); #Monocytes 0.5 thou/uL (0.11-0.59); #Neutrophils 3.8 thou/uL (1.40-6.50); %Basophils 0.7 % (0.0-1.0); %Eosinophils 2.8 % (0.0-10.0); %Lymphocytes 24.8 % (21.0-51.0); %Monocytes 7.7 % (0.0-10.0); Hemoglobin 12.6 g/dL (14.0-18.0); Mean Corpuscular HGB CONC 32.5 g/dL (32.0-36.0); Mean Corpuscular Hemoglobin 32.8 pg (27.0-31.0); Mean Corpuscular Volume 101.1 fL (78.0-98.0); Mean Platelet Volume 7.4 fL (7.4-10.4); Platelet Count 213 thou/uL (130-400); RBC Distribution Width 12.5 % (11.5-14.5); Red Blood Cell (RBC) Count 3.84 mill/uL (4.70-6.10)
[2020-09-01 13:51] LABS: ALT (SGPT) 45 U/L (8-55); AST (SGOT) 53 U/L (5-34); Albumin 3.3 g/dL (3.4-4.8); Alkaline Phosphatase 273 U/L (40-110); Anion Gap 18 mmol/L (10-20); BUN (Urea Nitrogen) 20 mg/dL (8.4-25.7); Bilirubin, Direct 0.2 mg/dL (0.1-0.3); Bilirubin, Total 0.3 mg/dL (0.2-1.2); Calc. Creatinine Clearance 0 mL/min (70-130); Calcium 8.8 mg/dL (7.8-10.44); Carbon Dioxide 27 mmol/L (23-31); Chloride 97 mmol/L (98-107); Glucose 185 mg/dL (83-110); Potassium 4.9 mmol/L (3.5-5.1); Protein, Total 6.9 g/dL (5.8-8.1); Sodium 137 mmol/L (136-145)
[2020-09-01 21:58] LABS: Hemoglobin A1c 7.5 % (4.0-6.0)
== END 2020-09-01 13:14 | disposition home or self-care (01) ==
LOC: MADLAB 13:13
PROVIDERS: ATTEND Pediatrics
DX: E11.65 Type 2 diabetes mellitus with hyperglycemia (principal); E11.40 Type 2 diabetes mellitus with diabetic neuropathy, unspecified; F33.1 Major depressive disorder, recurrent, moderate; R63.0 Anorexia
CPT/HCPCS: 80048; 80076; 80185; 83036; 84443; 85025

== ENCOUNTER 2020-11-11 16:40 | Inpatient (IN) | payer MEDICARE ==
[2020-11-11] MEDS ORDERED: Ondansetron ODT 4 MG TAB SL PRN (20:45)
[2020-11-11] MEDS ORDERED: Senokot S 8.6-50 MG TAB PO PRN (20:45)
[2020-11-11] MEDS ORDERED: Acetaminophen 325 MG TAB PO PRN (20:45)
[2020-11-11] MEDS ORDERED: Bisacodyl 5 MG TAB PO PRN (20:45)
[2020-11-11] MEDS ORDERED: Ondansetron ODT 4 MG TAB PO PRN (20:47)
[2020-11-11] MEDS ORDERED: Non-Formulary Item 1 EACH (Loperamide Hcl [Loperamide] 2 MG Tablet) PO PRN (20:47)
[2020-11-11] MEDS ORDERED: Docusate Sodium 100 MG/10 ML UDCUP PO PRN (20:47)
[2020-11-11] MEDS ORDERED: Dextrose 50% Abboject 50 ML SYRINGE SLOW IVP PRN (21:04)
[2020-11-11] MEDS ORDERED: Magnesium Oxide 400 MG TAB PO SCH (21:15)
[2020-11-11] MEDS ORDERED: Zinc Sulfate 220 MG CAP PO SCH (21:15)
[2020-11-11] MEDS ORDERED: Multivitamin W/ Minerals 1 TAB PO SCH (21:15)
[2020-11-11] MEDS ORDERED: Loperamide HCl 2 MG CAP PO PRN ×2 (21:21→21:23)
[2020-11-11] MEDS: Cholecalciferol (Vitamin D3) 400 UNITS TAB PO SCH (21:53)
[2020-11-11] MEDS: Ascorbic Acid 500 mg Chewable Tablet PO SCH (21:53)
[2020-11-11] MEDS: Rivaroxaban 10 MG TAB PO SCH (21:53)
[2020-11-11] MEDS: Atorvastatin Calcium 40 MG TAB PO SCH (21:55)
[2020-11-11] MEDS: Famotidine 20 MG TAB PO SCH (21:55)
[2020-11-11] MEDS: Ciprofloxacin 500 MG TAB PO SCH (21:55)
[2020-11-11] MEDS: Amoxicillin/Potassium Clav 875 MG TAB PO SCH (21:55)
[2020-11-11] MEDS: Ubidecarenone 50 MG CAP PO SCH (21:56)
[2020-11-11] MEDS: Aspirin Chewable 81 MG TAB PO SCH (21:56)
[2020-11-11] MEDS: BIOTIN 2500 MCG PO SCH (21:57)
[2020-11-11] MEDS: GLUCOSAMINE HCL 500 MG PO SCH (21:57)
[2020-11-12] MEDS: HumaLOG 300 UNITS/3 ML VIAL SC PRN ×5 (02:19→21:40)
[2020-11-12] MEDS: Fludrocortisone Acetate 0.1 MG TAB PO SCH (08:14)
[2020-11-12] MEDS: Saccharomyces boulardii 250 MG CAP PO SCH (08:14)
[2020-11-12] MEDS: Famotidine 20 MG TAB PO SCH ×2 (08:15→21:42)
[2020-11-12] MEDS: Ferrous Sulfate 325 MG TAB PO SCH (08:15)
[2020-11-12] MEDS: Citalopram 20 MG TAB PO SCH (08:15)
[2020-11-12] MEDS: Amoxicillin/Potassium Clav 875 MG TAB PO SCH ×2 (08:15→21:42)
[2020-11-12] MEDS ORDERED: FLU VACC QS2020-21(65YR UP)/PF 240 MCG/0.7 ML SYRINGE IM ONE (09:00)
[2020-11-12] MEDS: Ciprofloxacin 500 MG TAB PO SCH ×2 (10:03→22:00)
[2020-11-12] MEDS: Multivitamin W/ Minerals 1 TAB PO SCH (20:09)
[2020-11-12] MEDS: Magnesium Oxide 400 MG TAB PO SCH (20:09)
[2020-11-12] MEDS: Zinc Sulfate 220 MG CAP PO SCH (20:10)
[2020-11-12] MEDS: Aspirin Chewable 81 MG TAB PO SCH (21:41)
[2020-11-12] MEDS: Rivaroxaban 10 MG TAB PO SCH (21:42)
[2020-11-12] MEDS: Cholecalciferol (Vitamin D3) 400 UNITS TAB PO SCH (21:42)
[2020-11-12] MEDS: Atorvastatin Calcium 40 MG TAB PO SCH (21:42)
[2020-11-12] MEDS: Ubidecarenone 50 MG CAP PO SCH (21:42)
[2020-11-12] MEDS: BIOTIN 2500 MCG PO SCH (21:42)
[2020-11-12] MEDS: Ascorbic Acid 500 mg Chewable Tablet PO SCH (21:42)
[2020-11-12] MEDS: GLUCOSAMINE HCL 500 MG PO SCH (21:43)
[2020-11-13] MEDS: HumaLOG 300 UNITS/3 ML VIAL SC PRN ×3 (08:21→17:10)
[2020-11-13] MEDS: Amoxicillin/Potassium Clav 875 MG TAB PO SCH ×2 (08:22→21:37)
[2020-11-13] MEDS: Fludrocortisone Acetate 0.1 MG TAB PO SCH (08:22)
[2020-11-13] MEDS: Famotidine 20 MG TAB PO SCH ×2 (08:22→21:37)
[2020-11-13] MEDS: Ciprofloxacin 500 MG TAB PO SCH ×2 (08:22→21:55)
[2020-11-13] MEDS: Saccharomyces boulardii 250 MG CAP PO SCH (08:22)
[2020-11-13] MEDS: Ferrous Sulfate 325 MG TAB PO SCH (08:23)
[2020-11-13] MEDS: Acetaminophen 325 MG TAB PO PRN (08:23)
[2020-11-13] MEDS: Citalopram 20 MG TAB PO SCH (08:23)
[2020-11-13] MEDS: Zinc Sulfate 220 MG CAP PO SCH (19:55)
[2020-11-13] MEDS: Magnesium Oxide 400 MG TAB PO SCH (19:55)
[2020-11-13] MEDS: Multivitamin W/ Minerals 1 TAB PO SCH (19:55)
[2020-11-13] MEDS: Aspirin Chewable 81 MG TAB PO SCH (21:37)
[2020-11-13] MEDS: Ubidecarenone 50 MG CAP PO SCH (21:37)
[2020-11-13] MEDS: Ascorbic Acid 500 mg Chewable Tablet PO SCH (21:38)
[2020-11-13] MEDS: Cholecalciferol (Vitamin D3) 400 UNITS TAB PO SCH (21:38)
[2020-11-13] MEDS: Rivaroxaban 10 MG TAB PO SCH (21:38)
[2020-11-13] MEDS: Atorvastatin Calcium 40 MG TAB PO SCH (21:38)
[2020-11-13] MEDS: BIOTIN 2500 MCG PO SCH (21:39)
[2020-11-13] MEDS: GLUCOSAMINE HCL 500 MG PO SCH (21:39)
[2020-11-14] MEDS: Ferrous Sulfate 325 MG TAB PO SCH (10:11)
[2020-11-14] MEDS: Fludrocortisone Acetate 0.1 MG TAB PO SCH (10:11)
[2020-11-14] MEDS: Citalopram 20 MG TAB PO SCH (10:11)
[2020-11-14] MEDS: Ciprofloxacin 500 MG TAB PO SCH ×2 (11:40→21:43)
[2020-11-14] MEDS: Amoxicillin/Potassium Clav 875 MG TAB PO SCH ×2 (11:40→21:30)
[2020-11-14] MEDS: Famotidine 20 MG TAB PO SCH ×2 (11:40→21:30)
[2020-11-14] MEDS: HumaLOG 300 UNITS/3 ML VIAL SC PRN ×2 (11:45→17:34)
[2020-11-14] MEDS: Saccharomyces boulardii 250 MG CAP PO SCH (12:41)
[2020-11-14] MEDS: Zinc Sulfate 220 MG CAP PO SCH (19:54)
[2020-11-14] MEDS: Magnesium Oxide 400 MG TAB PO SCH (19:54)
[2020-11-14] MEDS: Multivitamin W/ Minerals 1 TAB PO SCH (19:54)
[2020-11-14] MEDS: Ubidecarenone 50 MG CAP PO SCH (21:29)
[2020-11-14] MEDS: Aspirin Chewable 81 MG TAB PO SCH (21:29)
[2020-11-14] MEDS: Rivaroxaban 10 MG TAB PO SCH (21:30)
[2020-11-14] MEDS: Atorvastatin Calcium 40 MG TAB PO SCH (21:30)
[2020-11-14] MEDS: Ascorbic Acid 500 mg Chewable Tablet PO SCH (21:30)
[2020-11-14] MEDS: Cholecalciferol (Vitamin D3) 400 UNITS TAB PO SCH (21:30)
[2020-11-14] MEDS: BIOTIN 2500 MCG PO SCH (21:31)
[2020-11-14] MEDS: GLUCOSAMINE HCL 500 MG PO SCH (21:31)
[2020-11-15] MEDS: HumaLOG 300 UNITS/3 ML VIAL SC PRN ×4 (08:17→21:47)
[2020-11-15] MEDS: Famotidine 20 MG TAB PO SCH ×2 (08:18→20:29)
[2020-11-15] MEDS: Saccharomyces boulardii 250 MG CAP PO SCH (08:18)
[2020-11-15] MEDS: Citalopram 20 MG TAB PO SCH (08:18)
[2020-11-15] MEDS: Ferrous Sulfate 325 MG TAB PO SCH (08:18)
[2020-11-15] MEDS: Fludrocortisone Acetate 0.1 MG TAB PO SCH (08:18)
[2020-11-15] MEDS: Amoxicillin/Potassium Clav 875 MG TAB PO SCH ×2 (08:18→20:26)
[2020-11-15] MEDS: Ciprofloxacin 500 MG TAB PO SCH ×2 (11:14→21:31)
[2020-11-15] MEDS: Zinc Sulfate 220 MG CAP PO SCH (20:24)
[2020-11-15] MEDS: Multivitamin W/ Minerals 1 TAB PO SCH (20:24)
[2020-11-15] MEDS: Magnesium Oxide 400 MG TAB PO SCH (20:24)
[2020-11-15] MEDS: Atorvastatin Calcium 40 MG TAB PO SCH (20:25)
[2020-11-15] MEDS: Rivaroxaban 10 MG TAB PO SCH (20:26)
[2020-11-15] MEDS: Cholecalciferol (Vitamin D3) 400 UNITS TAB PO SCH (20:29)
[2020-11-15] MEDS: Ascorbic Acid 500 mg Chewable Tablet PO SCH (20:30)
[2020-11-15] MEDS: Ubidecarenone 50 MG CAP PO SCH (20:30)
[2020-11-15] MEDS: Aspirin Chewable 81 MG TAB PO SCH (20:31)
[2020-11-15] MEDS: GLUCOSAMINE HCL 500 MG PO SCH (21:28)
[2020-11-15] MEDS: BIOTIN 2500 MCG PO SCH (21:28)
[2020-11-16 05:27] LABS: Hemoglobin 12.3 g/dL (14.0-18.0); Platelet Count 280 thou/uL (130-400)
[2020-11-16] MEDS: Famotidine 20 MG TAB PO SCH ×2 (08:07→21:20)
[2020-11-16] MEDS: Amoxicillin/Potassium Clav 875 MG TAB PO SCH ×2 (08:07→21:20)
[2020-11-16] MEDS: Saccharomyces boulardii 250 MG CAP PO SCH (08:07)
[2020-11-16] MEDS: Ferrous Sulfate 325 MG TAB PO SCH (08:07)
[2020-11-16] MEDS: Fludrocortisone Acetate 0.1 MG TAB PO SCH (08:07)
[2020-11-16] MEDS: Citalopram 20 MG TAB PO SCH (08:07)
[2020-11-16] MEDS: HumaLOG 300 UNITS/3 ML VIAL SC PRN ×4 (08:09→21:25)
[2020-11-16] MEDS: Acetaminophen 325 MG TAB PO PRN (10:14)
[2020-11-16] MEDS: Ciprofloxacin 500 MG TAB PO SCH ×2 (10:14→21:39)
[2020-11-16] MEDS: Magnesium Oxide 400 MG TAB PO SCH (20:21)
[2020-11-16] MEDS: Multivitamin W/ Minerals 1 TAB PO SCH (20:21)
[2020-11-16] MEDS: Zinc Sulfate 220 MG CAP PO SCH (20:21)
[2020-11-16] MEDS: Ubidecarenone 50 MG CAP PO SCH (21:20)
[2020-11-16] MEDS: Ascorbic Acid 500 mg Chewable Tablet PO SCH (21:20)
[2020-11-16] MEDS: BIOTIN 2500 MCG PO SCH (21:20)
[2020-11-16] MEDS: Aspirin Chewable 81 MG TAB PO SCH (21:20)
[2020-11-16] MEDS: GLUCOSAMINE HCL 500 MG PO SCH (21:20)
[2020-11-16] MEDS: Atorvastatin Calcium 40 MG TAB PO SCH (21:20)
[2020-11-16] MEDS: Cholecalciferol (Vitamin D3) 400 UNITS TAB PO SCH (21:21)
[2020-11-16] MEDS: Rivaroxaban 10 MG TAB PO SCH (21:21)
[2020-11-17] MEDS: Fludrocortisone Acetate 0.1 MG TAB PO SCH (08:57)
[2020-11-17] MEDS: Amoxicillin/Potassium Clav 875 MG TAB PO SCH ×2 (08:58→21:10)
[2020-11-17] MEDS: Ferrous Sulfate 325 MG TAB PO SCH (08:58)
[2020-11-17] MEDS: Famotidine 20 MG TAB PO SCH ×2 (08:58→21:07)
[2020-11-17] MEDS: Citalopram 20 MG TAB PO SCH (08:58)
[2020-11-17] MEDS: Saccharomyces boulardii 250 MG CAP PO SCH (08:58)
[2020-11-17] MEDS: Ciprofloxacin 500 MG TAB PO SCH ×2 (10:24→22:34)
[2020-11-17] MEDS: HumaLOG 300 UNITS/3 ML VIAL SC PRN (12:00)
[2020-11-17] MEDS: Multivitamin W/ Minerals 1 TAB PO SCH (20:55)
[2020-11-17] MEDS: Magnesium Oxide 400 MG TAB PO SCH (20:55)
[2020-11-17] MEDS: Zinc Sulfate 220 MG CAP PO SCH (20:55)
[2020-11-17] MEDS: Ubidecarenone 50 MG CAP PO SCH (21:06)
[2020-11-17] MEDS: Rivaroxaban 10 MG TAB PO SCH (21:08)
[2020-11-17] MEDS: Aspirin Chewable 81 MG TAB PO SCH (21:08)
[2020-11-17] MEDS: BIOTIN 2500 MCG PO SCH (21:10)
[2020-11-17] MEDS: GLUCOSAMINE HCL 500 MG PO SCH (21:10)
[2020-11-17] MEDS: Atorvastatin Calcium 40 MG TAB PO SCH (21:10)
[2020-11-17] MEDS: Cholecalciferol (Vitamin D3) 400 UNITS TAB PO SCH (21:10)
[2020-11-17] MEDS: Ascorbic Acid 500 mg Chewable Tablet PO SCH (21:10)
[2020-11-18] MEDS: Ferrous Sulfate 325 MG TAB PO SCH (09:01)
[2020-11-18] MEDS: Ciprofloxacin 500 MG TAB PO SCH ×2 (09:02→21:25)
[2020-11-18] MEDS: Fludrocortisone Acetate 0.1 MG TAB PO SCH (09:02)
[2020-11-18] MEDS: HumaLOG 300 UNITS/3 ML VIAL SC PRN ×2 (09:02→12:33)
[2020-11-18] MEDS: Famotidine 20 MG TAB PO SCH ×2 (09:02→20:25)
[2020-11-18] MEDS: Amoxicillin/Potassium Clav 875 MG TAB PO SCH ×2 (09:02→20:26)
[2020-11-18] MEDS: Saccharomyces boulardii 250 MG CAP PO SCH (09:02)
[2020-11-18] MEDS: Citalopram 20 MG TAB PO SCH (09:02)
[2020-11-18] MEDS: Multivitamin W/ Minerals 1 TAB PO SCH (20:25)
[2020-11-18] MEDS: Ubidecarenone 50 MG CAP PO SCH (20:25)
[2020-11-18] MEDS: Zinc Sulfate 220 MG CAP PO SCH (20:25)
[2020-11-18] MEDS: Ascorbic Acid 500 mg Chewable Tablet PO SCH (20:25)
[2020-11-18] MEDS: Rivaroxaban 10 MG TAB PO SCH (20:26)
[2020-11-18] MEDS: Cholecalciferol (Vitamin D3) 400 UNITS TAB PO SCH (20:27)
[2020-11-18] MEDS: Aspirin Chewable 81 MG TAB PO SCH (20:27)
[2020-11-18] MEDS: Magnesium Oxide 400 MG TAB PO SCH (20:27)
[2020-11-18] MEDS: Atorvastatin Calcium 40 MG TAB PO SCH (20:27)
[2020-11-18] MEDS: GLUCOSAMINE HCL 500 MG PO SCH (20:28)
[2020-11-18] MEDS: BIOTIN 2500 MCG PO SCH (20:28)
[2020-11-19 05:56] LABS: #Basophils 0.1 thou/uL (0.0-0.2); #Eosinphils 0.2 thou/uL (0.0-0.7); #Lymphocytes 1.1 thou/uL (1.20-3.40); #Monocytes 0.5 thou/uL (0.11-0.59); #Neutrophils 2.5 thou/uL (1.40-6.50); %Basophils 1.6 % (0.0-1.0); %Eosinophils 5.3 % (0.0-10.0); %Lymphocytes 24.7 % (21.0-51.0); %Monocytes 11.5 % (0.0-10.0); Mean Corpuscular HGB CONC 32.5 g/dL (32.0-36.0); Mean Corpuscular Volume 101.6 fL (78.0-98.0); Mean Platelet Volume 6.2 fL (7.4-10.4); Platelet Count 205 thou/uL (130-400); RBC Distribution Width 15.1 % (11.5-14.5); Red Blood Cell (RBC) Count 3.63 mill/uL (4.70-6.10); White Blood Cell (WBC) Count 4.4 thou/uL (4.8-10.8)
[2020-11-19 06:04] LABS: ALT (SGPT) 38 U/L (8-55); AST (SGOT) 49 U/L (5-34); Albumin 2.4 g/dL (3.4-4.8); Alkaline Phosphatase 207 U/L (40-110); Anion Gap 15 mmol/L (10-20); BUN (Urea Nitrogen) 37 mg/dL (8.4-25.7); Bilirubin, Total 0.4 mg/dL (0.2-1.2); CRP (Inflammatory) 8.89 mg/dL (= or < 0.5); Calc. Creatinine Clearance 75 mL/min (70-130); Calcium 8.7 mg/dL (7.8-10.44); Carbon Dioxide 25 mmol/L (23-31); Chloride 107 mmol/L (98-107); Globulin 3.5 g/dL (2.4-3.5); Glucose 165 mg/dL (83-110); Potassium 4.7 mmol/L (3.5-5.1); Protein, Total 5.9 g/dL (5.8-8.1); Sodium 142 mmol/L (136-145)
[2020-11-19] MEDS: Fludrocortisone Acetate 0.1 MG TAB PO SCH (09:21)
[2020-11-19] MEDS: Amoxicillin/Potassium Clav 875 MG TAB PO SCH ×2 (09:31→20:01)
[2020-11-19] MEDS: Citalopram 20 MG TAB PO SCH (09:31)
[2020-11-19] MEDS: Ciprofloxacin 500 MG TAB PO SCH ×2 (09:31→22:34)
[2020-11-19] MEDS: Saccharomyces boulardii 250 MG CAP PO SCH (09:31)
[2020-11-19] MEDS: Famotidine 20 MG TAB PO SCH ×2 (09:31→20:01)
[2020-11-19] MEDS: Ferrous Sulfate 325 MG TAB PO SCH (09:32)
[2020-11-19] MEDS: HumaLOG 300 UNITS/3 ML VIAL SC PRN ×2 (09:32→12:20)
[2020-11-19 16:02] LABS: Hemoglobin A1c 8.2 % (4.0-6.0)
[2020-11-19] MEDS: Ascorbic Acid 500 mg Chewable Tablet PO SCH (20:01)
[2020-11-19] MEDS: Ubidecarenone 50 MG CAP PO SCH (20:01)
[2020-11-19] MEDS: Aspirin Chewable 81 MG TAB PO SCH (20:01)
[2020-11-19] MEDS: Multivitamin W/ Minerals 1 TAB PO SCH (20:02)
[2020-11-19] MEDS: Magnesium Oxide 400 MG TAB PO SCH (20:02)
[2020-11-19] MEDS: Rivaroxaban 10 MG TAB PO SCH (20:02)
[2020-11-19] MEDS: Zinc Sulfate 220 MG CAP PO SCH (20:02)
[2020-11-19] MEDS: Atorvastatin Calcium 40 MG TAB PO SCH (20:02)
[2020-11-19] MEDS: Cholecalciferol (Vitamin D3) 400 UNITS TAB PO SCH (20:03)
[2020-11-19] MEDS: GLUCOSAMINE HCL 500 MG PO SCH (20:03)
[2020-11-19] MEDS: BIOTIN 2500 MCG PO SCH (20:03)
[2020-11-20] MEDS: Ciprofloxacin 500 MG TAB PO SCH ×2 (09:22→22:09)
[2020-11-20] MEDS: Famotidine 20 MG TAB PO SCH ×2 (09:22→21:56)
[2020-11-20] MEDS: Saccharomyces boulardii 250 MG CAP PO SCH (09:22)
[2020-11-20] MEDS: Fludrocortisone Acetate 0.1 MG TAB PO SCH (09:22)
[2020-11-20] MEDS: Citalopram 20 MG TAB PO SCH (09:22)
[2020-11-20] MEDS: Ferrous Sulfate 325 MG TAB PO SCH (09:22)
[2020-11-20] MEDS: Amoxicillin/Potassium Clav 875 MG TAB PO SCH ×2 (09:22→21:56)
[2020-11-20] MEDS: HumaLOG 300 UNITS/3 ML VIAL SC PRN ×2 (12:43→21:57)
[2020-11-20] MEDS: Magnesium Oxide 400 MG TAB PO SCH (20:09)
[2020-11-20] MEDS: Multivitamin W/ Minerals 1 TAB PO SCH (20:09)
[2020-11-20] MEDS: Zinc Sulfate 220 MG CAP PO SCH (20:09)
[2020-11-20] MEDS: Rivaroxaban 10 MG TAB PO SCH (21:55)
[2020-11-20] MEDS: Ubidecarenone 50 MG CAP PO SCH (21:56)
[2020-11-20] MEDS: Aspirin Chewable 81 MG TAB PO SCH (21:56)
[2020-11-20] MEDS: Cholecalciferol (Vitamin D3) 400 UNITS TAB PO SCH (21:56)
[2020-11-20] MEDS: Ascorbic Acid 500 mg Chewable Tablet PO SCH (21:56)
[2020-11-20] MEDS: Atorvastatin Calcium 40 MG TAB PO SCH (21:56)
[2020-11-20] MEDS: BIOTIN 2500 MCG PO SCH (21:57)
[2020-11-20] MEDS: GLUCOSAMINE HCL 500 MG PO SCH (21:57)
[2020-11-21] MEDS: HumaLOG 300 UNITS/3 ML VIAL SC PRN ×3 (09:15→17:27)
[2020-11-21] MEDS: Amoxicillin/Potassium Clav 875 MG TAB PO SCH ×2 (09:15→20:08)
[2020-11-21] MEDS: Citalopram 20 MG TAB PO SCH (09:16)
[2020-11-21] MEDS: Famotidine 20 MG TAB PO SCH ×2 (09:16→20:08)
[2020-11-21] MEDS: Ferrous Sulfate 325 MG TAB PO SCH (09:16)
[2020-11-21] MEDS: Saccharomyces boulardii 250 MG CAP PO SCH (09:16)
[2020-11-21] MEDS: Fludrocortisone Acetate 0.1 MG TAB PO SCH (09:16)
[2020-11-21] MEDS: Ciprofloxacin 500 MG TAB PO SCH ×2 (09:16→21:04)
[2020-11-21] MEDS: Zinc Sulfate 220 MG CAP PO SCH (20:07)
[2020-11-21] MEDS: Atorvastatin Calcium 40 MG TAB PO SCH (20:07)
[2020-11-21] MEDS: Rivaroxaban 10 MG TAB PO SCH (20:07)
[2020-11-21] MEDS: Multivitamin W/ Minerals 1 TAB PO SCH (20:08)
[2020-11-21] MEDS: Cholecalciferol (Vitamin D3) 400 UNITS TAB PO SCH (20:08)
[2020-11-21] MEDS: Magnesium Oxide 400 MG TAB PO SCH (20:08)
[2020-11-21] MEDS: Aspirin Chewable 81 MG TAB PO SCH (20:08)
[2020-11-21] MEDS: Ubidecarenone 50 MG CAP PO SCH (20:08)
[2020-11-21] MEDS: Ascorbic Acid 500 mg Chewable Tablet PO SCH (20:08)
[2020-11-22] MEDS: HumaLOG 300 UNITS/3 ML VIAL SC PRN ×3 (08:09→17:00)
[2020-11-22] MEDS: Famotidine 20 MG TAB PO SCH ×2 (08:10→20:26)
[2020-11-22] MEDS: Fludrocortisone Acetate 0.1 MG TAB PO SCH (08:10)
[2020-11-22] MEDS: Ferrous Sulfate 325 MG TAB PO SCH (08:10)
[2020-11-22] MEDS: Citalopram 20 MG TAB PO SCH (08:10)
[2020-11-22] MEDS: Saccharomyces boulardii 250 MG CAP PO SCH (08:10)
[2020-11-22] MEDS: Amoxicillin/Potassium Clav 875 MG TAB PO SCH ×2 (08:10→20:25)
[2020-11-22] MEDS: Ciprofloxacin 500 MG TAB PO SCH ×2 (10:46→21:06)
[2020-11-22] MEDS: Zinc Sulfate 220 MG CAP PO SCH (20:25)
[2020-11-22] MEDS: Ubidecarenone 50 MG CAP PO SCH (20:25)
[2020-11-22] MEDS: Atorvastatin Calcium 40 MG TAB PO SCH (20:25)
[2020-11-22] MEDS: Multivitamin W/ Minerals 1 TAB PO SCH (20:25)
[2020-11-22] MEDS: Aspirin Chewable 81 MG TAB PO SCH (20:25)
[2020-11-22] MEDS: Magnesium Oxide 400 MG TAB PO SCH (20:26)
[2020-11-22] MEDS: Ascorbic Acid 500 mg Chewable Tablet PO SCH (20:26)
[2020-11-22] MEDS: Cholecalciferol (Vitamin D3) 400 UNITS TAB PO SCH (20:26)
[2020-11-22] MEDS: Rivaroxaban 10 MG TAB PO SCH (20:26)
[2020-11-23] MEDS: Fludrocortisone Acetate 0.1 MG TAB PO SCH (08:12)
[2020-11-23] MEDS: Citalopram 20 MG TAB PO SCH (08:12)
[2020-11-23] MEDS: HumaLOG 300 UNITS/3 ML VIAL SC PRN ×4 (08:13→21:11)
[2020-11-23] MEDS: Amoxicillin/Potassium Clav 875 MG TAB PO SCH ×2 (08:13→20:21)
[2020-11-23] MEDS: Saccharomyces boulardii 250 MG CAP PO SCH (08:13)
[2020-11-23] MEDS: Ferrous Sulfate 325 MG TAB PO SCH (08:13)
[2020-11-23] MEDS: Famotidine 20 MG TAB PO SCH ×2 (08:13→20:20)
[2020-11-23] MEDS: Ciprofloxacin 500 MG TAB PO SCH ×2 (11:45→21:12)
[2020-11-23] MEDS: Ascorbic Acid 500 mg Chewable Tablet PO SCH (20:20)
[2020-11-23] MEDS: Ubidecarenone 50 MG CAP PO SCH (20:20)
[2020-11-23] MEDS: Multivitamin W/ Minerals 1 TAB PO SCH (20:21)
[2020-11-23] MEDS: Aspirin Chewable 81 MG TAB PO SCH (20:21)
[2020-11-23] MEDS: Rivaroxaban 10 MG TAB PO SCH (20:21)
[2020-11-23] MEDS: Zinc Sulfate 220 MG CAP PO SCH (20:21)
[2020-11-23] MEDS: Magnesium Oxide 400 MG TAB PO SCH (20:21)
[2020-11-23] MEDS: Atorvastatin Calcium 40 MG TAB PO SCH (20:21)
[2020-11-23] MEDS: Cholecalciferol (Vitamin D3) 400 UNITS TAB PO SCH (20:21)
[2020-11-24 05:41] LABS: Hemoglobin 12.3 g/dL (14.0-18.0); Platelet Count 208 thou/uL (130-400)
[2020-11-24] MEDS: HumaLOG 300 UNITS/3 ML VIAL SC PRN ×3 (08:34→17:08)
[2020-11-24] MEDS: Saccharomyces boulardii 250 MG CAP PO SCH (09:52)
[2020-11-24] MEDS: Ciprofloxacin 500 MG TAB PO SCH ×2 (09:52→21:56)
[2020-11-24] MEDS: Ferrous Sulfate 325 MG TAB PO SCH (09:52)
[2020-11-24] MEDS: Citalopram 20 MG TAB PO SCH (09:52)
[2020-11-24] MEDS: Famotidine 20 MG TAB PO SCH ×2 (09:52→20:14)
[2020-11-24] MEDS: Amoxicillin/Potassium Clav 875 MG TAB PO SCH ×2 (09:52→20:12)
[2020-11-24] MEDS: Fludrocortisone Acetate 0.1 MG TAB PO SCH (09:52)
[2020-11-24] MEDS: Zinc Sulfate 220 MG CAP PO SCH (20:12)
[2020-11-24] MEDS: Atorvastatin Calcium 40 MG TAB PO SCH (20:12)
[2020-11-24] MEDS: Magnesium Oxide 400 MG TAB PO SCH (20:13)
[2020-11-24] MEDS: Ascorbic Acid 500 mg Chewable Tablet PO SCH (20:13)
[2020-11-24] MEDS: Aspirin Chewable 81 MG TAB PO SCH (20:13)
[2020-11-24] MEDS: Rivaroxaban 10 MG TAB PO SCH (20:13)
[2020-11-24] MEDS: Multivitamin W/ Minerals 1 TAB PO SCH (20:13)
[2020-11-24] MEDS: Cholecalciferol (Vitamin D3) 400 UNITS TAB PO SCH (20:13)
[2020-11-25] MEDS: HumaLOG 300 UNITS/3 ML VIAL SC PRN ×3 (08:22→17:09)
[2020-11-25] MEDS: Amoxicillin/Potassium Clav 875 MG TAB PO SCH ×2 (08:23→21:04)
[2020-11-25] MEDS: Ciprofloxacin 500 MG TAB PO SCH ×2 (08:23→21:11)
[2020-11-25] MEDS: Saccharomyces boulardii 250 MG CAP PO SCH (08:23)
[2020-11-25] MEDS: Fludrocortisone Acetate 0.1 MG TAB PO SCH (08:23)
[2020-11-25] MEDS: Famotidine 20 MG TAB PO SCH ×2 (08:23→21:09)
[2020-11-25] MEDS: Citalopram 20 MG TAB PO SCH (08:23)
[2020-11-25] MEDS: Ferrous Sulfate 325 MG TAB PO SCH (08:23)
[2020-11-25] MEDS ORDERED: metFORMIN 500 MG TAB PO SCH (19:00)
[2020-11-25] MEDS: Zinc Sulfate 220 MG CAP PO SCH (19:42)
[2020-11-25] MEDS: Magnesium Oxide 400 MG TAB PO SCH (19:42)
[2020-11-25] MEDS: Multivitamin W/ Minerals 1 TAB PO SCH (19:42)
[2020-11-25] MEDS: Cholecalciferol (Vitamin D3) 400 UNITS TAB PO SCH (21:04)
[2020-11-25] MEDS: Mirtazapine 15 MG TAB PO SCH (21:05)
[2020-11-25] MEDS: Rivaroxaban 10 MG TAB PO SCH (21:05)
[2020-11-25] MEDS: Aspirin Chewable 81 MG TAB PO SCH (21:06)
[2020-11-25] MEDS: Atorvastatin Calcium 40 MG TAB PO SCH (21:09)
[2020-11-25] MEDS: Ascorbic Acid 500 mg Chewable Tablet PO SCH (21:10)
[2020-11-26] MEDS ORDERED: metFORMIN 500 MG TAB PO SCH (08:00)
[2020-11-26] MEDS: Ferrous Sulfate 325 MG TAB PO SCH (08:43)
[2020-11-26] MEDS: Famotidine 20 MG TAB PO SCH ×2 (08:44→20:58)
[2020-11-26] MEDS: Fludrocortisone Acetate 0.1 MG TAB PO SCH (08:44)
[2020-11-26] MEDS: Amoxicillin/Potassium Clav 875 MG TAB PO SCH ×2 (08:44→20:58)
[2020-11-26] MEDS: Citalopram 20 MG TAB PO SCH (08:44)
[2020-11-26] MEDS: Saccharomyces boulardii 250 MG CAP PO SCH (08:44)
[2020-11-26] MEDS: Ciprofloxacin 500 MG TAB PO SCH ×2 (10:29→22:32)
[2020-11-26] MEDS: HumaLOG 300 UNITS/3 ML VIAL SC PRN ×2 (12:08→16:37)
[2020-11-26] MEDS: Multivitamin W/ Minerals 1 TAB PO SCH (20:57)
[2020-11-26] MEDS: Zinc Sulfate 220 MG CAP PO SCH (20:57)
[2020-11-26] MEDS: Cholecalciferol (Vitamin D3) 400 UNITS TAB PO SCH (20:58)
[2020-11-26] MEDS: Magnesium Oxide 400 MG TAB PO SCH (20:58)
[2020-11-26] MEDS: Rivaroxaban 10 MG TAB PO SCH (20:59)
[2020-11-26] MEDS: Aspirin Chewable 81 MG TAB PO SCH (20:59)
[2020-11-26] MEDS: Mirtazapine 15 MG TAB PO SCH (21:01)
[2020-11-26] MEDS: Ascorbic Acid 500 mg Chewable Tablet PO SCH (21:01)
[2020-11-26] MEDS: Atorvastatin Calcium 40 MG TAB PO SCH (21:02)
[2020-11-27] MEDS: Citalopram 20 MG TAB PO SCH (09:03)
[2020-11-27] MEDS: Ferrous Sulfate 325 MG TAB PO SCH (09:03)
[2020-11-27] MEDS: Famotidine 20 MG TAB PO SCH ×2 (09:03→20:40)
[2020-11-27] MEDS: Amoxicillin/Potassium Clav 875 MG TAB PO SCH ×2 (09:03→20:42)
[2020-11-27] MEDS: Saccharomyces boulardii 250 MG CAP PO SCH (09:04)
[2020-11-27] MEDS: Fludrocortisone Acetate 0.1 MG TAB PO SCH (09:04)
[2020-11-27] MEDS: HumaLOG 300 UNITS/3 ML VIAL SC PRN ×3 (09:09→16:58)
[2020-11-27] MEDS: Ciprofloxacin 500 MG TAB PO SCH ×2 (10:20→21:42)
[2020-11-27] MEDS: Multivitamin W/ Minerals 1 TAB PO SCH (20:39)
[2020-11-27] MEDS: Mirtazapine 15 MG TAB PO SCH (20:39)
[2020-11-27] MEDS: Atorvastatin Calcium 40 MG TAB PO SCH (20:39)
[2020-11-27] MEDS: Aspirin Chewable 81 MG TAB PO SCH (20:39)
[2020-11-27] MEDS: Zinc Sulfate 220 MG CAP PO SCH (20:40)
[2020-11-27] MEDS: Ascorbic Acid 500 mg Chewable Tablet PO SCH (20:41)
[2020-11-27] MEDS: Rivaroxaban 10 MG TAB PO SCH (20:42)
[2020-11-27] MEDS: Cholecalciferol (Vitamin D3) 400 UNITS TAB PO SCH (20:43)
[2020-11-27] MEDS: Magnesium Oxide 400 MG TAB PO SCH (20:43)
[2020-11-28] MEDS: Fludrocortisone Acetate 0.1 MG TAB PO SCH (07:58)
[2020-11-28] MEDS: Famotidine 20 MG TAB PO SCH ×2 (07:58→20:32)
[2020-11-28] MEDS: Saccharomyces boulardii 250 MG CAP PO SCH (07:59)
[2020-11-28] MEDS: Amoxicillin/Potassium Clav 875 MG TAB PO SCH ×2 (07:59→20:33)
[2020-11-28] MEDS: Ferrous Sulfate 325 MG TAB PO SCH (07:59)
[2020-11-28] MEDS: Citalopram 20 MG TAB PO SCH (07:59)
[2020-11-28] MEDS: HumaLOG 300 UNITS/3 ML VIAL SC PRN ×3 (08:11→23:23)
[2020-11-28] MEDS: Ciprofloxacin 500 MG TAB PO SCH ×2 (11:33→21:52)
[2020-11-28] MEDS: Rivaroxaban 15 MG TAB PO SCH (20:31)
[2020-11-28] MEDS: Mirtazapine 15 MG TAB PO SCH (20:31)
[2020-11-28] MEDS: Aspirin Chewable 81 MG TAB PO SCH (20:31)
[2020-11-28] MEDS: Zinc Sulfate 220 MG CAP PO SCH (20:31)
[2020-11-28] MEDS: Atorvastatin Calcium 40 MG TAB PO SCH (20:32)
[2020-11-28] MEDS: Ascorbic Acid 500 mg Chewable Tablet PO SCH (20:33)
[2020-11-28] MEDS: Cholecalciferol (Vitamin D3) 400 UNITS TAB PO SCH (20:33)
[2020-11-28] MEDS: Multivitamin W/ Minerals 1 TAB PO SCH (20:34)
[2020-11-28] MEDS: Magnesium Oxide 400 MG TAB PO SCH (20:34)
[2020-11-28] MEDS ORDERED: Rivaroxaban 10 MG TAB PO SCH (21:00)
[2020-11-29] MEDS: Amoxicillin/Potassium Clav 875 MG TAB PO SCH ×2 (09:53→21:00)
[2020-11-29] MEDS: Famotidine 20 MG TAB PO SCH ×2 (09:53→21:02)
[2020-11-29] MEDS: Ferrous Sulfate 325 MG TAB PO SCH (09:53)
[2020-11-29] MEDS: Saccharomyces boulardii 250 MG CAP PO SCH (09:53)
[2020-11-29] MEDS: Fludrocortisone Acetate 0.1 MG TAB PO SCH (09:53)
[2020-11-29] MEDS: Citalopram 20 MG TAB PO SCH (09:53)
[2020-11-29] MEDS: Furosemide 20 MG TAB PO SCH (10:02)
[2020-11-29] MEDS: Ciprofloxacin 500 MG TAB PO SCH ×2 (11:57→21:56)
[2020-11-29] MEDS: HumaLOG 300 UNITS/3 ML VIAL SC PRN ×2 (12:03→17:16)
[2020-11-29] MEDS: Zinc Sulfate 220 MG CAP PO SCH (20:59)
[2020-11-29] MEDS: Multivitamin W/ Minerals 1 TAB PO SCH (20:59)
[2020-11-29] MEDS: Magnesium Oxide 400 MG TAB PO SCH (20:59)
[2020-11-29] MEDS: Aspirin Chewable 81 MG TAB PO SCH (21:00)
[2020-11-29] MEDS: Atorvastatin Calcium 40 MG TAB PO SCH (21:00)
[2020-11-29] MEDS: Mirtazapine 15 MG TAB PO SCH (21:00)
[2020-11-29] MEDS: Cholecalciferol (Vitamin D3) 400 UNITS TAB PO SCH (21:01)
[2020-11-29] MEDS: Rivaroxaban 15 MG TAB PO SCH (21:02)
[2020-11-29] MEDS: Ascorbic Acid 500 mg Chewable Tablet PO SCH (21:02)
[2020-11-29] MEDS: Nystatin Cream 15 GM TUBE TOP SCH (21:29)
[2020-11-29] MEDS: Insulin Glargine 5 UNITS in Pre-Filled Syringe 1 EACH SC SCH (21:53)
[2020-11-30 05:53] LABS: Hemoglobin 12.7 g/dL (14.0-18.0); Platelet Count 211 thou/uL (130-400)
[2020-11-30] MEDS ORDERED: Potassium Chloride 10 MEQ TAB PO SCH (08:00)
[2020-11-30] MEDS: HumaLOG 300 UNITS/3 ML VIAL SC PRN ×3 (08:53→17:13)
[2020-11-30] MEDS: Ferrous Sulfate 325 MG TAB PO SCH (08:54)
[2020-11-30] MEDS: Famotidine 20 MG TAB PO SCH ×2 (08:54→21:50)
[2020-11-30] MEDS: Fludrocortisone Acetate 0.1 MG TAB PO SCH (08:54)
[2020-11-30] MEDS: Amoxicillin/Potassium Clav 875 MG TAB PO SCH ×2 (08:54→21:50)
[2020-11-30] MEDS: Citalopram 20 MG TAB PO SCH (08:54)
[2020-11-30] MEDS: Potassium Bicarbonate/Cit Ac 20 MEQ TAB PO SCH (08:54)
[2020-11-30] MEDS: Saccharomyces boulardii 250 MG CAP PO SCH (08:54)
[2020-11-30] MEDS: Furosemide 20 MG TAB PO SCH (08:55)
[2020-11-30] MEDS: Nystatin Cream 15 GM TUBE TOP SCH ×2 (09:05→22:01)
[2020-11-30] MEDS: Ciprofloxacin 500 MG TAB PO SCH ×2 (11:07→22:21)
[2020-11-30] MEDS: Multivitamin W/ Minerals 1 TAB PO SCH (19:21)
[2020-11-30] MEDS: Magnesium Oxide 400 MG TAB PO SCH (19:21)
[2020-11-30] MEDS: Zinc Sulfate 220 MG CAP PO SCH (19:21)
[2020-11-30] MEDS: Aspirin Chewable 81 MG TAB PO SCH (21:50)
[2020-11-30] MEDS: Atorvastatin Calcium 40 MG TAB PO SCH (21:50)
[2020-11-30] MEDS: Ascorbic Acid 500 mg Chewable Tablet PO SCH (21:50)
[2020-11-30] MEDS: Cholecalciferol (Vitamin D3) 400 UNITS TAB PO SCH (21:50)
[2020-11-30] MEDS: Rivaroxaban 15 MG TAB PO SCH (21:51)
[2020-11-30] MEDS: Mirtazapine 15 MG TAB PO SCH (21:51)
[2020-11-30] MEDS ORDERED: Lantus 1000 UNITS/10 ML VIAL SC SCH (22:15)
[2020-11-30] MEDS: Insulin Glargine 5 UNITS in Pre-Filled Syringe 1 EACH SC SCH (22:40)
[2020-12-01] MEDS: Amoxicillin/Potassium Clav 875 MG TAB PO SCH ×2 (08:46→21:15)
[2020-12-01] MEDS: Famotidine 20 MG TAB PO SCH ×2 (08:46→21:14)
[2020-12-01] MEDS: Furosemide 20 MG TAB PO SCH (08:47)
[2020-12-01] MEDS: Ferrous Sulfate 325 MG TAB PO SCH (08:47)
[2020-12-01] MEDS: Fludrocortisone Acetate 0.1 MG TAB PO SCH (08:47)
[2020-12-01] MEDS: Potassium Bicarbonate/Cit Ac 20 MEQ TAB PO SCH (08:47)
[2020-12-01] MEDS: Saccharomyces boulardii 250 MG CAP PO SCH (08:47)
[2020-12-01] MEDS: Citalopram 20 MG TAB PO SCH (08:47)
[2020-12-01] MEDS: Nystatin Cream 15 GM TUBE TOP SCH ×2 (08:48→21:15)
[2020-12-01 09:00] VITALS: BMI 22.5
[2020-12-01] MEDS: Ciprofloxacin 500 MG TAB PO SCH ×2 (09:33→21:15)
[2020-12-01] MEDS: HumaLOG 300 UNITS/3 ML VIAL SC PRN ×2 (12:02→16:36)
[2020-12-01 19:08] VITALS: TEMP 97.6
[2020-12-01] MEDS: Mirtazapine 15 MG TAB PO SCH (21:14)
[2020-12-01] MEDS: Aspirin Chewable 81 MG TAB PO SCH (21:14)
[2020-12-01] MEDS: Multivitamin W/ Minerals 1 TAB PO SCH (21:14)
[2020-12-01] MEDS: Atorvastatin Calcium 40 MG TAB PO SCH (21:15)
[2020-12-01] MEDS: Magnesium Oxide 400 MG TAB PO SCH (21:15)
[2020-12-01] MEDS: Ascorbic Acid 500 mg Chewable Tablet PO SCH (21:15)
[2020-12-01] MEDS: Cholecalciferol (Vitamin D3) 400 UNITS TAB PO SCH (21:15)
[2020-12-01] MEDS: Zinc Sulfate 220 MG CAP PO SCH (21:15)
[2020-12-01] MEDS: Rivaroxaban 15 MG TAB PO SCH (21:15)
[2020-12-01] MEDS: Lantus 1000 UNITS/10 ML VIAL SC SCH (21:42)
[2020-12-02] MEDS: Fludrocortisone Acetate 0.1 MG TAB PO SCH (09:39)
[2020-12-02] MEDS: Famotidine 20 MG TAB PO SCH ×2 (09:39→20:02)
[2020-12-02] MEDS: Citalopram 20 MG TAB PO SCH (09:39)
[2020-12-02] MEDS: Potassium Bicarbonate/Cit Ac 20 MEQ TAB PO SCH (09:39)
[2020-12-02] MEDS: Saccharomyces boulardii 250 MG CAP PO SCH (09:39)
[2020-12-02] MEDS: Ferrous Sulfate 325 MG TAB PO SCH (09:39)
[2020-12-02] MEDS: Furosemide 20 MG TAB PO SCH (09:39)
[2020-12-02] MEDS: Nystatin Cream 15 GM TUBE TOP SCH ×2 (09:42→20:02)
[2020-12-02] MEDS: HumaLOG 300 UNITS/3 ML VIAL SC PRN (12:39)
[2020-12-02 19:52] VITALS: BP 175/84
[2020-12-02] MEDS: Cholecalciferol (Vitamin D3) 400 UNITS TAB PO SCH (20:00)
[2020-12-02] MEDS: Mirtazapine 15 MG TAB PO SCH (20:01)
[2020-12-02] MEDS: Multivitamin W/ Minerals 1 TAB PO SCH (20:01)
[2020-12-02] MEDS: Ascorbic Acid 500 mg Chewable Tablet PO SCH (20:01)
[2020-12-02] MEDS: Rivaroxaban 15 MG TAB PO SCH (20:01)
[2020-12-02] MEDS: Aspirin Chewable 81 MG TAB PO SCH (20:01)
[2020-12-02] MEDS: Zinc Sulfate 220 MG CAP PO SCH (20:01)
[2020-12-02] MEDS: Atorvastatin Calcium 40 MG TAB PO SCH (20:01)
[2020-12-02] MEDS: Magnesium Oxide 400 MG TAB PO SCH (20:02)
[2020-12-02] MEDS: Lantus 1000 UNITS/10 ML VIAL SC SCH (20:11)
== END 2020-12-02 20:45 | disposition home health service (06) | DRG 602 ==
LOC: MADMS 19:04
PROVIDERS: ADMIT Family Medicine; ATTEND Family Medicine
DX: L03.115 Cellulitis of right lower limb (principal); U07.1 COVID-19; L97.419 Non-pressure chronic ulcer of right heel and midfoot with unspecified severity; I25.5 Ischemic cardiomyopathy; H54.61 Unqualified visual loss, right eye, normal vision left eye; D63.8 Anemia in other chronic diseases classified elsewhere; K58.9 Irritable bowel syndrome, unspecified; I65.29 Occlusion and stenosis of unspecified carotid artery; I25.10 Atherosclerotic heart disease of native coronary artery without angina pectoris; I48.0 Paroxysmal atrial fibrillation; N18.30 Chronic kidney disease, stage 3 unspecified; E11.40 Type 2 diabetes mellitus with diabetic neuropathy, unspecified; E11.51 Type 2 diabetes mellitus with diabetic peripheral angiopathy without gangrene; E11.22 Type 2 diabetes mellitus with diabetic chronic kidney disease; G40.909 Epilepsy, unspecified, not intractable, without status epilepticus; R53.81 Other malaise; F41.9 Anxiety disorder, unspecified; F32.9 Major depressive disorder, single episode, unspecified; I25.2 Old myocardial infarction; Z79.4 Long term (current) use of insulin; Z79.01 Long term (current) use of anticoagulants; Z95.2 Presence of prosthetic heart valve; Z95.1 Presence of aortocoronary bypass graft; Z86.73 Personal history of transient ischemic attack (TIA), and cerebral infarction without residual deficits; Z98.42 Cataract extraction status, left eye; Z98.41 Cataract extraction status, right eye; Z88.2 Allergy status to sulfonamides; Z88.6 Allergy status to analgesic agent; Z88.8 Allergy status to other drugs, medicaments and biological substances; Z79.2 Long term (current) use of antibiotics; Z79.899 Other long term (current) drug therapy
CPT/HCPCS: 36415; 36416; 71045; 80053; 83036; 85014; 85018; 85025; 85049; 86140; 94640; J1815; J7620